=== PATIENT | female | born 1990 | race Two or more races ===

== ENCOUNTER 2020-12-22 07:57 | Outpatient (REF) | payer OTHER, SELFPAY ==
[2020-12-22 10:28] LABS: Hematocrit 40.5 % (37-47); Hemoglobin 12.6 g/dl (12.0-16.0); Mean Corpuscular HGB Conc 31.1 g/dl (31.0-35.0); Mean Corpuscular Volume 80.2 fL (80-98); Platelet Count 443 X10*3/uL (160-400); Red Blood Count 5.05 X10*6/uL (4.20-5.50); Red Cell Distribution Width 15.2 % (11.0-16.0); White Blood Count 10.5 X10*3/uL (4.8-10.8)
[2020-12-22 10:51] LABS: Alanine Aminotransferase 35 U/L (0-31); Albumin Level 4.3 g/dL (3.5-5.0); Alkaline Phosphatase 88 U/L (39-117); Amylase 49 U/L (28-100); Anion Gap 13 (12-20); Aspartate Amino Transferase 21 U/L (5-31); Bilirubin Total 0.6 mg/dL (0.0-1.0); Blood Urea Nitrogen 15 mg/dL (9-16); Calcium 9.2 mg/dL (8.4-10.2); Carbon Dioxide 26 mmol/L (22-29); Chloride 102 mmol/L (96-108); Estimated Glomerular Filt Rate > 60; Glucose Random 93 mg/dL (60-115); Lipase 27 U/L (8-78); Potassium 3.9 mmol/L (3.3-5.1); Sodium 137 mmol/L (135-145); Total Protein 7.6 g/dL (6.5-8.0)
[2020-12-22 11:14] LABS: Thyroid Stimulating Hormone 3.07 uIU/mL (0.32-4.0)
[2020-12-23 02:39] LABS: CT PCR NOT DETECTED (Not Detect.); NG PCR NOT DETECTED (Not Detect.)
[2020-12-23 10:03] LABS: DHEA Sulfate 239 mcg/dL (18-391)
[2020-12-23 11:51] LABS: Prolactin 6.3 ng/mL
[2020-12-23 13:03] LABS: BV Int Neg Control Negative (Negative); BV Int Pos Control Positive (Positive)
[2020-12-28 15:42] LABS: Testosterone, Free 9.2 pg/mL (0.1-6.4); Testosterone, Total 45 ng/dL (2-45)
== END 2020-12-22 07:58 | disposition home or self-care (01) ==
LOC: HO.LAB 07:57
PROVIDERS: Nurse Practitioner Family; PCP Nurse Practitioner Family; Visit Provider Advanced Practice Midwife
DX: Z11.3 Encounter for screening for infections with a predominantly sexual mode of transmission (principal); R10.13 Epigastric pain; N93.9 Abnormal uterine and vaginal bleeding, unspecified; N92.6 Irregular menstruation, unspecified; L68.0 Hirsutism; E66.01 Morbid (severe) obesity due to excess calories; Z68.43 Body mass index [BMI] 50.0-59.9, adult
CPT/HCPCS: 36415; 80053; 81025; 82150; 82627; 83498; 83690; 84146; 84402; 84403; 84443; 85027; 87480; 87491; 87510; 87591; 87660; 99212

== ENCOUNTER 2021-01-07 15:26 | Outpatient (REF) | payer OTHER, SELFPAY ==
--- NOTE | ~2021-01-07 | US_ITS ---
EXAMINATION: US PELVIS AND TRANSVAGINAL CLINICAL INFORMATION: Abnormal uterine bleeding. COMPARISON: 04/22/2019 TECHNIQUE: Transcutaneous and transvaginal pelvic ultrasound. Transvaginal scanning was performed after voiding to better evaluate the endometrium and adnexa. FINDINGS: The uterus measures 6.9 x 4.2 x 5.1 cm. The uterus is retroverted and retroflexed oblique to the left.No suspicious abnormalities region of the cervix. The uterine contour is smooth. There is an arcuate appearance to the uterus. The endometrium measures 1.5 cm. The endometrium is somewhat heterogeneous which may be related to the secretory phase. No focal polyp identified. No focal abnormalities within the myometrium. The right ovary measures approximately 3.6 x 1.9 x 2.7 cm. The calculated right ovarian volume is approximately 9.7 mL. No abnormal right adnexal findings identified. The left ovary measures 3.1 x 1.7 x 1.9 cm. The calculated left ovarian volume is approximately 5.2 mL. No left adnexal abnormalities appreciated. No significant free pelvic fluid. US/US pelvic and transvaginal IMPRESSION: Arcuate uterus. Thickened and somewhat heterogeneous endometrium measuring 1.5 cm in diameter. This may be seen in the secretory phase. Hyperplasia can also have this appearance as well as endometritis. Endometrial carcinoma would seem much less likely at this age.
== END 2021-01-07 15:27 | disposition home or self-care (01) ==
LOC: HO.US 15:26
PROVIDERS: PCP Nurse Practitioner Family; Visit Provider Advanced Practice Midwife
DX: N93.9 Abnormal uterine and vaginal bleeding, unspecified (principal); N92.6 Irregular menstruation, unspecified; L68.0 Hirsutism
CPT/HCPCS: 76830; 76856

== ENCOUNTER 2021-01-21 09:26 | Outpatient (REF) | payer OTHER, SELFPAY | END 2021-01-21 09:27 | disposition home or self-care (01) | LOC: HO.LAB 09:26 | PROVIDERS: PCP Nurse Practitioner Family; Visit Provider Advanced Practice Midwife | DX: E28.2 Polycystic ovarian syndrome (principal); N93.9 Abnormal uterine and vaginal bleeding, unspecified | CPT/HCPCS: 58100; 81025; 88142; 88305 ==

== ENCOUNTER → 2021-02-04 09:33 | Outpatient (BNVA) | payer OTHER, SELFPAY | PROVIDERS: PCP Nurse Practitioner Family; Visit Provider Advanced Practice Midwife ==

== ENCOUNTER 2021-03-08 14:59 | Outpatient (REF) | payer OTHER, SELFPAY ==
[2021-03-08 17:28] LABS: Influenza A PCR NEGATIVE (Negative); Influenza B PCR NEGATIVE (Negative); Resp Syncy Virus RNA Qual PCR NEGATIVE (Negative); SARS COV2 PCR INHOUSE NEGATIVE (Negative)
== END 2021-03-08 15:00 | disposition home or self-care (01) ==
LOC: HO.LAB 14:59
PROVIDERS: Visit Provider Internal Medicine
DX: R43.9 Unspecified disturbances of smell and taste (principal); Z20.822 Contact with and (suspected) exposure to COVID-19
CPT/HCPCS: 0241U; 36415

== ENCOUNTER → 2021-04-04 12:47 | Outpatient (BNVA) | payer OTHER, SELFPAY | PROVIDERS: PCP Nurse Practitioner Family; Visit Provider Advanced Practice Midwife | DX: Z30.430 Encounter for insertion of intrauterine contraceptive device (principal) | CPT/HCPCS: 58300; 81025 ==

== ENCOUNTER 2021-05-09 14:04 | Outpatient (REF) | payer OTHER, SELFPAY ==
[2021-05-10 10:21] LABS: BV Int Neg Control Negative (Negative); BV Int Pos Control Positive (Positive)
== END 2021-05-09 14:05 | disposition home or self-care (01) ==
LOC: HO.LAB 14:04
PROVIDERS: PCP Nurse Practitioner Family; Visit Provider Advanced Practice Midwife
DX: N92.4 Excessive bleeding in the premenopausal period (principal); R10.2 Pelvic and perineal pain; N92.6 Irregular menstruation, unspecified; Z30.431 Encounter for routine checking of intrauterine contraceptive device
CPT/HCPCS: 87480; 87510; 87660; 99212

== ENCOUNTER 2021-06-24 15:35 | Outpatient (REF) | payer OTHER, SELFPAY ==
--- NOTE | ~2021-06-24 | US_ITS ---
EXAMINATION: US PELVIC AND TRANSVAGINAL CLINICAL INFORMATION: Excessive and frequent menstruation. COMPARISON: Previous pelvic ultrasound most recent 01/07/2021. TECHNIQUE: Ultrasound of the pelvis is performed using both transabdominal and transvaginal transducers along with Doppler. Transvaginal imaging is performed due to inadequate visualization transabdominally. FINDINGS: The uterus is retroverted and measures 6.5 x 3.6 x 4.1 cm in dimension. There is an IUD in the uterus in satisfactory position. Endometrial thickness is normal measuring 8 mm. No focal uterine lesion is seen. There are nabothian cysts in the cervix. The right ovary measures 3.4 x 2 x 2.5 cm. The left ovary measures 3.3 x 1.7 x 1.8 cm. There are multiple small peripheral cysts or follicles seen in both ovaries. There is question of a 1.5 x 1.2 x 1.2 cm left adnexal cyst. This is seen on transabdominal imaging only. There is no fluid in the pelvis. US/US pelvic and transvaginal IMPRESSION: New IUD in the uterus in satisfactory position.
== END 2021-06-24 15:36 | disposition home or self-care (01) ==
LOC: HO.US 15:35
PROVIDERS: Visit Provider Advanced Practice Midwife
DX: Z30.431 Encounter for routine checking of intrauterine contraceptive device (principal); N92.0 Excessive and frequent menstruation with regular cycle
CPT/HCPCS: 76830; 76856

== ENCOUNTER → 2021-07-04 15:21 | Outpatient (BNVA) | payer OTHER, SELFPAY | PROVIDERS: PCP Nurse Practitioner Family; Visit Provider Advanced Practice Midwife ==

== ENCOUNTER 2022-02-24 09:57 | Outpatient (REF) | payer OTHER, SELFPAY ==
[2022-02-24 15:32] LABS: CT PCR NOT DETECTED (Not Detect.); NG PCR NOT DETECTED (Not Detect.)
[2022-03-02 22:41] LABS: HPV mRNA E6/E7 rflx Not Detected (Not Detected)
== END 2022-02-24 09:58 | disposition home or self-care (01) ==
LOC: HO.LNP 09:57
PROVIDERS: Visit Provider Advanced Practice Midwife
DX: Z01.419 Encounter for gynecological examination (general) (routine) without abnormal findings (principal); Z11.51 Encounter for screening for human papillomavirus (HPV)
CPT/HCPCS: 87491; 87591; 87624; 88142

== ENCOUNTER 2022-06-15 06:54 | Outpatient (REF) | payer OTHER, SELFPAY ==
[2022-06-15 11:12] LABS: MANUAL DIFF FLAG NO
[2022-06-15 11:18] LABS: Basophils Absolute Auto 0.1 X10*3/uL (0.0-0.2); Basophils Percent Auto 0.6 % (0-2); Eosinophils Absolute Auto 0.3 X10*3/uL (0.0-0.4); Eosinophils Percent Auto 3.1 % (0-4); Hematocrit 44.3 % (37.0-47.0); Hemoglobin 13.8 g/dl (12.0-16.0); Imm Gran Abs Auto 0.07 X10*3/uL (0.00-0.03); Imm Gran Pct Auto 0.6 % (0.0-0.4); Lymphocytes Absolute Auto 3.2 X10*3/uL (1.2-4.9); Lymphocytes Percent Auto 29.1 % (20-40); Mean Corpuscular HGB Conc 31.2 g/dl (31.0-35.0); Mean Corpuscular Hemoglobin 25.8 pg (27.0-33.0); Mean Platelet Volume 9.5 fL (9.4-12.3); Monocytes Absolute Auto 0.8 X10*3/uL (0.1-1.2); Monocytes Percent Auto 7.6 % (2-11); Neutrophils Absolute Auto 6.4 x10*3/uL (2.0-8.3); Platelet Count 388 X10*3/uL (160-400); Red Blood Count 5.34 X10*6/uL (4.20-5.50); White Blood Count 10.8 X10*3/uL (4.8-10.8)
[2022-06-15 11:41] LABS: Appearance Urine Clear; Color Urine Yellow; Glucose Urine UA Negative (Negative); Leukocyte Esterase Urine Small (1+) (Negative); Nitrite Urine Negative (Negative); Specific Gravity - Urine 1.015 (1.005-1.025); UMIC TRIGGER UACC YES; Urine Blood Negative (Negative); Urine Ketones Negative (Negative); Urine Protein Negative (Neg-Trace)
[2022-06-15 12:00] LABS: Bacteria Urine None Seen (None Seen); Hyaline Casts Urine 0-2 /LPF (0-2); RBC Urine 0-2 /HPF (0-2); UACC Culture Trigger YES; WBC Urine 0-5 /HPF (0-5)
[2022-06-15 13:13] LABS: Alanine Aminotransferase 47 U/L (0-31); Albumin Level 4.1 g/dL (3.5-5.0); Alkaline Phosphatase 99 U/L (39-117); Anion Gap 12 (12-20); Aspartate Amino Transferase 24 U/L (5-31); Bilirubin Total 0.6 mg/dL (0.0-1.0); Blood Urea Nitrogen 15 mg/dL (9-16); Calcium 8.9 mg/dL (8.4-10.2); Carbon Dioxide 29 mmol/L (22-29); Chloride 100 mmol/L (96-108); Cholesterol 127 mg/dL; Estimated Glomerular Filt Rate > 60; Glucose Fasting 103 mg/dL (60-99); HDL Cholesterol 41 mg/dL; LDL Cholesterol Calculated 73 mg/dl; Potassium 3.9 mmol/L (3.3-5.1); Sodium 137 mmol/L (135-145); Total Protein 7.1 g/dL (6.5-8.0); Triglycerides 68 mg/dL
[2022-06-15 13:34] LABS: TSH reflex Free T4 2.76 uIU/mL (0.32-4.0)
== END 2022-06-15 06:55 | disposition home or self-care (01) ==
LOC: HO.HMGCLDS 06:54
PROVIDERS: PCP Nurse Practitioner Family; Visit Provider Nurse Practitioner Family
DX: Z00.00 Encounter for general adult medical examination without abnormal findings (principal)
CPT/HCPCS: 36415; 80053; 80061; 81001; 84443; 85025; 87086; 87147

== ENCOUNTER 2022-06-20 07:19 | Outpatient (REF) | payer OTHER, SELFPAY ==
[2022-06-20 11:37] LABS: Appearance Urine Clear; Color Urine Yellow; Glucose Urine UA Negative (Negative); Leukocyte Esterase Urine Negative (Negative); Nitrite Urine Negative (Negative); Urine Blood Negative (Negative); Urine Ketones Negative (Negative); Urine Protein Negative (Neg-Trace)
[2022-06-21 04:58] LABS: HBS Num1 389.73 mIU/mL (0-7.99); HBc Num1 0.14 S/CO (0.00-0.79); HBsAGNum1 0.27 S/CO (0.00-0.99); Hepatitis A Antibody IgM 0.18 Index (0-0.79); Hepatitis B Core Antibody Nonreactive (Nonreactive); Hepatitis B Surface Antigen Negative (Negative); ~Hepatitis A Antibody IgM Nonreactive (Nonreactive); ~Hepatitis B Surface Antibody REACTIVE (Nonreactive); ~Hepatitis C Antibody Nonreactive (Nonreactive)
== END 2022-06-20 07:20 | disposition home or self-care (01) ==
LOC: HO.HMGCLDS 07:19
PROVIDERS: PCP Nurse Practitioner Family; Visit Provider Nurse Practitioner Family
DX: Z00.00 Encounter for general adult medical examination without abnormal findings (principal); R74.8 Abnormal levels of other serum enzymes
CPT/HCPCS: 36415; 81003; 86704; 86706; 86709; 86803; 87340

== ENCOUNTER 2022-06-26 08:48 | Outpatient (REF) | payer OTHER, SELFPAY ==
--- NOTE | ~2022-06-26 | US_ITS ---
EXAMINATION: US ABDOMEN COMPLETE CLINICAL INFORMATION: Abnormal levels of other serum enzymes. COMPARISON: Ultrasound abdomen complete 10/08/2018. TECHNIQUE: Real-time imaging of the abdominal viscera. FINDINGS: PANCREAS: Normal. ABDOMINAL AORTA: The proximal, mid, and distal segments are normal in caliber. INFERIOR VENA CAVA: Visualized portions are normal. LIVER: The liver is normal in size. The liver contour is normal. There is diffuse increased liver parenchymal echogenicity, consistent with infiltrative hepatocellular disease. No definite focal lesion is seen, but evaluation is limited due to poor sound beam penetration through the coarse echogenic liver parenchyma. There is no intrahepatic biliary duct dilatation seen. GALLBLADDER: Surgically absent. COMMON BILE DUCT: Normal in caliber measuring 0.4 cm in diameter. RIGHT KIDNEY: Normal. No hydronephrosis. No renal calculi or focal parenchymal lesions. The kidney measures 11.0 cm in maximum dimension. LEFT KIDNEY: Normal. No hydronephrosis. No renal calculi or focal parenchymal lesions. The kidney measures 10.5 cm in maximum dimension. SPLEEN: Normal. The spleen measures 9.5 cm in maximum dimension. FREE FLUID: None. US/US abdomen complete IMPRESSION: Increased hepatic echogenicity which can be seen in the setting of hepatic steatosis or underlying liver disease.
== END 2022-06-26 08:49 | disposition home or self-care (01) ==
LOC: HO.HMGCX 08:48
PROVIDERS: PCP Nurse Practitioner Family; Visit Provider Nurse Practitioner Family
DX: R74.8 Abnormal levels of other serum enzymes (principal)
CPT/HCPCS: 76700

== ENCOUNTER → 2022-08-31 07:34 | Outpatient (BNVA) | payer OTHER, SELFPAY | PROVIDERS: PCP Nurse Practitioner Family; Referring Provider Nurse Practitioner Family; Visit Provider Nurse Practitioner Family | DX: R10.13 Epigastric pain (principal); R74.8 Abnormal levels of other serum enzymes; K21.9 Gastro-esophageal reflux disease without esophagitis; K58.2 Mixed irritable bowel syndrome; E55.9 Vitamin D deficiency, unspecified | CPT/HCPCS: 99202 ==

== ENCOUNTER 2022-09-05 06:29 | Outpatient (REF) | payer OTHER, SELFPAY ==
[2022-09-05 12:16] LABS: Estimated Average Glucose 117 mg/dL; Hemoglobin A1c % 5.7 %
[2022-09-05 12:30] LABS: Alanine Aminotransferase 34 U/L (0-31); Albumin Level 4.2 g/dL (3.5-5.0); Alkaline Phosphatase 109 U/L (39-117); Aspartate Amino Transferase 17 U/L (5-31); Bilirubin Direct 0.2 mg/dL (0.0-0.5); Bilirubin Total 0.6 mg/dL (0.0-1.0); Lipase 36 U/L (8-78); Total Protein 7.2 g/dL (6.5-8.0)
[2022-09-05 12:45] LABS: Vitamin B12 301 pg/mL (200-900)
[2022-09-08 19:24] LABS: Vitamin D 25-OH, D2 <4 ng/mL; Vitamin D 25-OH, D3 11 ng/mL; Vitamin D 25-OH, Total 11 ng/mL (30-100)
[2022-09-11 08:28] LABS: Transglutaminase Ab IgG <1.0 U/mL; Transglutaminase IgA <1.0 U/mL
== END 2022-09-05 06:30 | disposition home or self-care (01) ==
LOC: HO.HMGCLDS 06:29
PROVIDERS: PCP Nurse Practitioner Family; Visit Provider Nurse Practitioner Family
DX: R10.9 Unspecified abdominal pain (principal); R10.13 Epigastric pain; E55.9 Vitamin D deficiency, unspecified; R19.7 Diarrhea, unspecified
CPT/HCPCS: 36415; 80076; 82306; 82607; 82746; 83036; 83690; 86364

== ENCOUNTER 2022-09-07 08:12 | Outpatient (REF) | payer OTHER, SELFPAY ==
[2022-09-09 11:06] LABS: H Pylori Breath Test Negative (Negative)
== END 2022-09-07 08:13 | disposition home or self-care (01) ==
LOC: HO.LNP 08:12
PROVIDERS: Visit Provider Nurse Practitioner Family
DX: Z11.2 Encounter for screening for other bacterial diseases (principal)
CPT/HCPCS: 83013; 99211

== ENCOUNTER → 2022-10-05 08:00 | Outpatient (BNVA) | payer OTHER, SELFPAY | PROVIDERS: PCP Nurse Practitioner Family; Referring Provider Nurse Practitioner Family; Visit Provider Nurse Practitioner Family | DX: K21.9 Gastro-esophageal reflux disease without esophagitis (principal); R10.13 Epigastric pain; K59.04 Chronic idiopathic constipation; Z79.899 Other long term (current) drug therapy | CPT/HCPCS: 99212 ==

== ENCOUNTER 2023-03-13 08:06 | Outpatient (AMB) | payer OTHER, SELFPAY ==
[2023-03-13 08:31] VITALS: BP 132/80; PULSE 72; TEMP 36.4; O2SAT 98; BMI 55.8
--- NOTE | 2023-03-13 08:31 | MHC.OFFWIV ---
Intake Vital Signs 03/13/23 08:31 Height 5 ft Weight 286 lb BMI 55.8 BP 132/80 Blood Pressure Location Rt brachial Position Sitting Pulse 72 Pulse Source Pulse Oximeter Temp 97.6 F Temp Source Temporal Artery Scan Pulse Oximetry (%) 98 Intake Visit Reasons: EP Diff breathing due to cough -1 week Intake Note: pt is here for c/o difficult breathing due to cough 1x week Patient Tobacco Use Status: Never used Tobacco Allergies No Known Allergies [No Known Allergies*] Allergy (Verified 03/13/23 09:05) Medication List - Last Reconciled 03/13/23 by Guero Puente MD calcium carbonate (Tums) 300 mg PO BID cholecalciferol (vitamin D3) 50 mcg PO DAILY docusate sodium 100 mg PO BEDTIME famotidine (Pepcid) 20 mg PO BEDTIME levonorgestrel (Kyleena) intrauterine methylcellulose (laxative) (Citrucel) 500 mg PO DAILY sennosides (Natural Senna Laxative) 17.2 mg (2 x 8.6 mg) PO BEDTIME Do you need a note to return to daycare/school/sports/work: Yes HPI EP Diff breathing due to cough -1 week HPI Details Patient presents for a sick visit. Reporting symptoms of sinus congestion, sore throat and difficulty swallowing. Low-grade fever. No family member is sick. No recent travel. Patient reports symptoms of malaise and fatigue. [facility] Medical History Arcuate uterus Fatty liver GERD (gastroesophageal reflux disease) Hirsutism History of pancreatitis Iron deficiency anemia due to chronic blood loss Menorrhagia with irregular cycle Morbid obesity with BMI of 50.0-59.9, adult PCOS (polycystic ovarian syndrome) Surgical History History of tonsillectomy S/P cholecystectomy Family History Father Diabetes Hypertension Mother Diabetes Hypertension Thyroid cancer Maternal Grandmother Breast cancer Social History Household Members: Spouse and Children Housing: House Alcohol intake: current Alcohol intake frequency: holidays/special occasions only Alcohol type: beer and hard liquor Patient Tobacco Use Status: Never used Tobacco e-Cigarette/Vaping Use: Never Used Second Hand Smoke Exposure: Yes service: No Current occupational status: employed Current occupation: [email or web address] Current occupational exposures/hazards: No Cognitive needs: No Hearing needs: No Vision needs: No Female Reproductive History Menstrual Age of Menarche: 11 Physical Exam Vital Signs: Last Vital Signs Temp 97.6 F 03/13/23 08:31 Pulse 72 03/13/23 08:31 BP 132/80 03/13/23 08:31 Pulse Ox 98 03/13/23 08:31 BMI result Body Mass Index 55.8 Const General: cooperative and healthy appearing Nutritional Appearance: well nourished Orientation/consciousness: patient oriented x3 Limitations: no limitations HEENT Head: Yes normal to inspection Eyes General: appearance normal, both eyes and all related structures Neck Neck: Yes normal visual inspection Chest Chest palpation & inspection: normal palpation of entire chest wall Resp Effort & Inspection: normal respiratory effort Neuro General: patient oriented x3 Assessment & Plan Assessment & Plan (1) Upper respiratory tract infection: Code(s): J06.9 - Acute upper respiratory infection, unspecified Plan: Antibiotics ordered. Increase fluid intake. Tylenol for aches and pains. If symptoms worsen, follow-up here for a recheck. Coding Level of Care Code Est Pt Level 3 (63621) Diagnoses Upper respiratory tract infection J06.9
== END 2023-03-13 09:21 | disposition home or self-care (01) ==
PROVIDERS: PCP Nurse Practitioner Family; Visit Provider Internal Medicine
DX: J06.9 Acute upper respiratory infection, unspecified (principal)
CPT/HCPCS: 99213

== ENCOUNTER 2023-07-18 14:00 | Outpatient (AMB) | payer OTHER, SELFPAY ==
--- NOTE | 2023-07-18 14:02 | A.OFFVIS_ITS ---
Intake Vital Signs 07/18/23 14:03 Height 5 ft Weight 282 lb BMI 55.1 BP 108/66 Intake Visit Reasons: Annual Electronic Publications Specialist: Electronic Publications Specialist Present (Frances) Allergies No Known Allergies [No Known Allergies*] Allergy (Verified 07/18/23 14:03) HPI HPI Comments History of Present Illness Details She is a premenopausal woman presenting for annual examination. Doing well with no concerns. She tries to eat healthy and tries to exercise. Regular monthly menses. Currently is sexually active. She denies vaginal itching and irritation. STI screening offered; she declines. Denies family history of ovarian or colon cancer. Family history of breast cancer Last pap smear 2021, negative. [facility] Medical History Fatty liver GERD (gastroesophageal reflux disease) Arcuate uterus PCOS (polycystic ovarian syndrome) Morbid obesity with BMI of 50.0-59.9, adult History of pancreatitis Iron deficiency anemia due to chronic blood loss Hirsutism Menorrhagia with irregular cycle Surgical History S/P cholecystectomy History of tonsillectomy Family History Father Diabetes Hypertension Mother Diabetes Hypertension Thyroid cancer Maternal Grandmother Breast cancer Social History Household Members: Spouse and Children Housing: House Alcohol intake: current Alcohol intake frequency: holidays/special occasions only Alcohol type: beer and hard liquor Patient Tobacco Use Status: Never used Tobacco e-Cigarette/Vaping Use: Never Used Second Hand Smoke Exposure: Yes service: No Current occupational status: employed Current occupation: [employer] Current occupational exposures/hazards: No Cognitive needs: No Hearing needs: No Vision needs: No Female Reproductive History Menstrual Age of Menarche: 11 control method: progestin IUCD (Kyleena 04/24) Total pregnancies: 0 Date of last pap smear: 02/24/22 (neg pap and hpv) Review of Systems Const All systems reviewed & are unremarkable except as noted in HPI and below Reports as per HPI Eyes Reports no additional complaints ENT Reports no additional complaints Card Reports no additional complaints Resp Reports no additional complaints GI Reports as per HPI and Reports no additional complaints Reports as per HPI Musc Reports no additional complaints Skin/Breast Reports as per HPI Neuro Reports no additional complaints Psych Reports no additional complaints Endo Reports no additional complaints Zay/Lymph Reports no additional complaints Aller/Immun Reports no additional complaints Physical Exam Vital Signs: Last Vital Signs BP 108/66 07/18/23 14:03 BMI result Body Mass Index 55.1 Const General: cooperative, healthy appearing, no acute distress, well developed and alert Orientation/consciousness: patient oriented x3 HEENT Head: Yes normal to inspection Eyes General: appearance normal, both eyes and all related structures Neck Neck: Yes normal visual inspection Thyroid: Thyroid normal Chest Chest palpation & inspection: normal inspection of the chest and other (no puckering, dimpling, peau de orange, retraction, discharge, masses) Breast/axilla inspection: normal inspection of the breasts Breast/axilla palpation: normal palpation of the breasts Resp Effort & Inspection: normal respiratory effort GI Inspection: Yes normal to inspection and Yes obesity Palpation (GI): Soft to palpation Rectal Exam - Female: deferred General: Yes bladder normal to palpation External Female Exam: normal external appearance and normal appearance of the urethra Speculum Exam - Vagina: normal appearance of the vagina, normal palpation and normal vaginal discharge Speculum Exam - Cervix: normal appearance of the cervix, normal palpation and Other cervical findings present (IUD strings present) Bimanual exam- vagina & uterus: normal bimanual exam, normal palpation, uterine size normal, bladder normal to palpation, normal palpation and non-tender Bimanual Exam- Adnexa, other: no masses Skin General skin exam: no rashes or lesions noted Rashes: no rashes Neuro General: patient oriented x3 Cognition (Neuro): normal cognition Extrem General: Yes normal to inspection Psych Attitude: cooperative Thought process: Normal thought process present Assessment & Plan Assessment & Plan (1) Encounter for well woman exam with routine gynecological exam: Code(s): Z01.419 - Encounter for gynecological examination (general) (routine) without abnormal findings Plan Discussed: Current recommendations for pap smears per ASCCP guidelines. Breast awareness and periodic breast exams. Maintain a healthy lifestyle including a well balanced diet and routine exercise. Patient verbalizes understanding and agrees to the plan of care. She was given opportunity to ask questions and all questions were answered to the best of my ability. RTO in one year for annual nurse obgyn examination. This note is constructed using voice recognition software. While every effort has been made to ensure accuracy, counter sales person errors may have been included. Coding Level of Care Code Est Pt Prev Care 18-39y(48539) Diagnoses Encounter for well woman exam with routine gynecological exam Z01.419
[2023-07-18 14:03] VITALS: BP 108/66; BMI 55.1
== END 2023-07-18 14:34 | disposition home or self-care (01) ==
PROVIDERS: PCP Nurse Practitioner Family; Visit Provider Advanced Practice Midwife
DX: Z01.419 Encounter for gynecological examination (general) (routine) without abnormal findings (principal)
CPT/HCPCS: 99395

== ENCOUNTER → 2023-07-18 14:00 | Outpatient (BNVA) | payer OTHER, SELFPAY | PROVIDERS: PCP Nurse Practitioner Family; Visit Provider Advanced Practice Midwife | DX: Z01.419 Encounter for gynecological examination (general) (routine) without abnormal findings (principal) | CPT/HCPCS: 99395 ==

== ENCOUNTER 2024-01-21 08:04 | Outpatient (AMB) | payer OTHER, SELFPAY ==
[2024-01-21 08:08] VITALS: BMI 55.5
--- NOTE | 2024-01-21 08:08 | AM.OFFWIN_ITS ---
Intake Vital Signs 01/21/24 08:08 01/21/24 08:20 Height 5 ft 5 ft Weight 284 lb 284 lb BMI 55.5 55.5 BP 110/82 Blood Pressure Location Lt radial Position Sitting Pulse 97 Pulse Source Pulse Oximeter Temp 98.4 F Temp Source Oral Pulse Oximetry (%) 98 Oxygen Delivery Method Room Air Intake Visit Reasons: EP Sore Throat, ear pain, cough, fever, red eyes Intake Note: PT C/O sore throat, ear pain, cough, fever, red eyes. Started 1 week ago Patient Tobacco Use Status: Never used Tobacco Allergies No Known Allergies [No Known Allergies*] Allergy (Verified 01/21/24 08:22) Do you need a note to return to daycare/school/sports/work: No HPI HPI Comments History of Present Illness Details Patient is a 33-year-old female complaining of 1 week of sore throat, head congestion, cough, fever with a T-max of 102 degrees that came down with Tylenol, and ear pain. She states he travel to [place] a week ago and she got sick while she was there. She states no one else at home is sick. She denies any nausea vomiting diarrhea or sinus pain. She did not test for COVID at home. She has been using Mucinex and has gone through 2 bottles already but it does not seem to be helping. [facility] Medical History Fatty liver GERD (gastroesophageal reflux disease) Arcuate uterus PCOS (polycystic ovarian syndrome) Morbid obesity with BMI of 50.0-59.9, adult History of pancreatitis Iron deficiency anemia due to chronic blood loss Hirsutism Menorrhagia with irregular cycle Surgical History S/P cholecystectomy History of tonsillectomy Family History Father Diabetes Hypertension Mother Diabetes Hypertension Thyroid cancer Maternal Grandmother Breast cancer Social History Household Members: Spouse and Children Housing: House Alcohol intake: current Alcohol intake frequency: holidays/special occasions only Alcohol type: beer and hard liquor Patient Tobacco Use Status: Never used Tobacco e-Cigarette/Vaping Use: Never Used Second Hand Smoke Exposure: Yes service: No Current occupational status: employed Current occupation: [employer] Current occupational exposures/hazards: No Cognitive needs: No Hearing needs: No Vision needs: No Female Reproductive History Menstrual Age of Menarche: 11 Review of Systems Const All systems reviewed & are unremarkable except as noted in HPI and below Physical Exam Vital Signs: Last Vital Signs Temp 98.4 F 01/21/24 08:20 Pulse 97 01/21/24 08:20 BP 110/82 01/21/24 08:20 Pulse Ox 98 01/21/24 08:20 Oxygen Delivery Method Room Air 01/21/24 08:20 BMI result Body Mass Index 55.5 Const General: cooperative, healthy appearing, comfortable and no acute distress Orientation/consciousness: patient oriented x3 Limitations: no limitations HEENT Head: Yes normal to inspection Ears: hearing grossly normal bilaterally, external ears normal and TM's normal bilaterally General nose exam: Normal external nose present, Normal nares present and No nasal discharge present Face and sinus: Yes normal facial exam and Yes sinuses nontender Mouth: Normal oral and palatal mucosa present and moist mucous membranes Throat: Yes tonsils normal, Yes uvula midline and Yes posterior oropharynx abnormal (Erythema) Eyes General: appearance normal, both eyes and all related structures Neck Neck: Yes normal visual inspection Resp Effort & Inspection: normal respiratory effort, able to speak in complete sentences, Actively coughing, no respiratory distress, not tachypneic, no tripod positioning and no use of accessory muscles Auscultation: clear to auscultation bilaterally Cardio Rate: regular rate Rhythm: regular rhythm Heart sounds: normal S1 and S2 Skin General skin exam: no rashes or lesions noted Neuro General: patient oriented x3 Extrem General: Yes normal to inspection and Yes no clubbing, cyanosis or edema Results AMB Rapid Strep AMB Rapid Strep Negative Last Edit by Maryan Carnes CMA on 01/21/24 08:31 Results Reviewed Results Reviewed: Laboratory Last Values Strep Scn Rapid Clinic Negative 01/21/24 08:25 Assessment & Plan Assessment & Plan (1) Upper respiratory tract infection: Code(s): J06.9 - Acute upper respiratory infection, unspecified Qualifiers: URI type: unspecified URI Qualified Code(s): J06.9 - Acute upper respiratory infection, unspecified Plan: Will likely prescribe azithromycin plus or minus Augmentin depending on what chest x-ray says. Sent flu COVID and RSV, rapid strep was negative in office Plan see above Orders: Orders AMB Rapid Strep Screen Today Z13.9 - Encounter for screening, unspecified SARS-CoV2/FLU/RSV Today J06.9 - Acute upper respiratory infection, unspecified XR chest 2V Today R05.9 - Cough, unspecified Coding Level of Care Code Est Pt Level 3 (90760) Diagnoses Upper respiratory tract infection, unspecified type J06.9 URI type: unspecified URI
[2024-01-21 08:20] VITALS: BP 110/82; PULSE 97; TEMP 36.9; O2SAT 98; BMI 55.5
== END 2024-01-21 08:47 | disposition home or self-care (01) ==
PROVIDERS: PCP Nurse Practitioner Family; Visit Provider Physician Assistant
DX: J06.9 Acute upper respiratory infection, unspecified (principal); Z13.9 Encounter for screening, unspecified
CPT/HCPCS: 87880; 99213

== ENCOUNTER 2024-01-21 08:46 | Outpatient (REF) | payer OTHER, SELFPAY ==
--- NOTE | ~2024-01-21 | XR_ITS ---
EXAMINATION: XR CHEST CLINICAL INFORMATION: Cough COMPARISON: 07/22/2019 TECHNIQUE: 2 views of the chest were obtained. FINDINGS: No significant abnormality is noted involving the heart, lungs, mediastinum, bony thorax or soft tissues. XR/XR chest 2V IMPRESSION: Unremarkable examination.
== END 2024-01-21 08:47 | disposition home or self-care (01) ==
LOC: HO.HMGCX 08:46
PROVIDERS: PCP Nurse Practitioner Family; Visit Provider Physician Assistant
DX: R05.9 Cough, unspecified (principal)
CPT/HCPCS: 71046

== ENCOUNTER 2024-01-21 08:46 | Outpatient (REF) | payer OTHER, SELFPAY ==
[2024-01-21 11:39] LABS: Influenza A PCR NEGATIVE (Negative); Influenza B PCR NEGATIVE (Negative); Resp Syncy Virus RNA Qual PCR NEGATIVE (Negative); SARS COV2 PCR INHOUSE NEGATIVE (Negative)
== END 2024-01-21 08:47 | disposition home or self-care (01) ==
LOC: HO.LAB 08:46
PROVIDERS: Visit Provider Physician Assistant
DX: J06.9 Acute upper respiratory infection, unspecified (principal)
CPT/HCPCS: 0241U

== ENCOUNTER 2024-02-01 08:02 | Outpatient (AMB) | payer OTHER, SELFPAY ==
[2024-02-01 08:30] VITALS: BP 132/84; PULSE 91; TEMP 36.9; O2SAT 99; BMI 54.8
--- NOTE | 2024-02-01 08:30 | AM.OFFWIN_ITS ---
Intake Vital Signs 02/01/24 08:30 Height 5 ft Weight 280 lb 6 oz BMI 54.8 BP 132/84 Blood Pressure Location Lt brachial Position Sitting Pulse 91 Pulse Source Pulse Oximeter Temp 98.5 F Temp Source Oral Pulse Oximetry (%) 99 Oxygen Delivery Method Room Air Intake Visit Reasons: EP- sore throat, lost her voice Intake Note: Pt presents to the office today for c/o sore throat, congestion, and some sinus pressure that has been going on for about a month. Patient Tobacco Use Status: Never used Tobacco Allergies No Known Allergies [No Known Allergies*] Allergy (Verified 02/01/24 08:33) HPI HPI Comments History of Present Illness Details 33 y/o female patient who presents to [facility] for the c/o cough and chest tightness for at-least 1 month. Chest Xray done 01/17 negative for Infection. Recent COVID test negative. Denies fevers, chills, nausea or vomiting. [facility] Medical History Fatty liver GERD (gastroesophageal reflux disease) Arcuate uterus PCOS (polycystic ovarian syndrome) Morbid obesity with BMI of 50.0-59.9, adult History of pancreatitis Iron deficiency anemia due to chronic blood loss Hirsutism Menorrhagia with irregular cycle Surgical History S/P cholecystectomy History of tonsillectomy Family History Father Diabetes Hypertension Mother Diabetes Hypertension Thyroid cancer Maternal Grandmother Breast cancer Social History Household Members: Spouse and Children Housing: House Alcohol intake: current Alcohol intake frequency: holidays/special occasions only Alcohol type: beer and hard liquor Patient Tobacco Use Status: Never used Tobacco e-Cigarette/Vaping Use: Never Used Second Hand Smoke Exposure: Yes service: No Current occupational status: employed Current occupation: [employer] Current occupational exposures/hazards: No Cognitive needs: No Hearing needs: No Vision needs: No Female Reproductive History Menstrual Age of Menarche: 11 Review of Systems Const All systems reviewed & are unremarkable except as noted in HPI and below Physical Exam Vital Signs: Last Vital Signs Temp 98.5 F 08/30/24 08:30 Pulse 91 02/01/24 08:30 BP 132/84 02/01/24 08:30 Pulse Ox 99 02/01/24 08:30 Oxygen Delivery Method Room Air 02/01/24 08:30 BMI result Body Mass Index 54.8 Const General: cooperative and no acute distress Nutritional Appearance: obese Orientation/consciousness: patient oriented x3 HEENT Head: Yes normocephalic Ears: external ears normal and TM's normal bilaterally General nose exam: Abnormal mucous membranes and turbinates present boggy and erythematous Face and sinus: Yes sinuses nontender Mouth: moist mucous membranes Throat: Yes posterior oropharynx normal Resp Effort & Inspection: normal respiratory effort, able to speak in complete sentences and Actively coughing Auscultation: clear to auscultation bilaterally, no crackles, no rales, no rhonchi and no wheezes Cardio Heart sounds: S1 normal heart sound present and S2 normal heart sound present Neuro General: patient oriented x3, gait normal and moves all extremities Psych Speech and movement: Normal speech and movement present Results AMB Rapid Strep AMB Rapid Strep Negative Last Edit by Olivia Peñaloza CMA on 02/01/24 08:43 Results Reviewed Results Reviewed: Laboratory Last Values Strep Scn [facility] Clinic Negative 02/01/24 08:42 Assessment & Plan Assessment & Plan (1) Cough in adult: Code(s): R05.9 - Cough, unspecified Plan: Ordered Z-pack Added Cetirizine BID Rest Acetaminophen for pain relief. Plan Rapid Strep negative. Orders: Orders AMB Rapid Strep Screen Today Z13.9 - Encounter for screening, unspecified Medications: New azithromycin 500 mg PO DAILY 3 days 3 tabs 0RF J06.9 - Acute upper respiratory infection, unspecified, R05.9 - Cough, unspecified cetirizine (Zyrtec) 10 mg PO DAILY PRN 60 tabs 0RF allergy symptoms R05.9 - Cough, unspecified Coding Level of Care Code Est Pt Level 3 (64478) Diagnoses Cough in adult R05.9 Time Spent (min) 15
== END 2024-02-01 08:54 | disposition home or self-care (01) ==
PROVIDERS: PCP Nurse Practitioner Family; Visit Provider Nurse Practitioner Family
DX: R05.9 Cough, unspecified (principal); J02.9 Acute pharyngitis, unspecified
CPT/HCPCS: 87880; 99213

== ENCOUNTER 2024-02-01 08:42 | Outpatient (REF) | payer OTHER, SELFPAY ==
[2024-02-01 11:07] LABS: Influenza A PCR NEGATIVE (Negative); Influenza B PCR NEGATIVE (Negative); Resp Syncy Virus RNA Qual PCR NEGATIVE (Negative); SARS COV2 PCR INHOUSE NEGATIVE (Negative)
== END 2024-02-01 08:43 | disposition home or self-care (01) ==
LOC: HO.LAB 08:42
PROVIDERS: Visit Provider Nurse Practitioner Family
DX: R09.89 Other specified symptoms and signs involving the circulatory and respiratory systems (principal)
CPT/HCPCS: 0241U

== ENCOUNTER → 2024-02-12 10:08 | Outpatient (RCR) | payer OTHER, SELFPAY ==
[2021-01-10 10:55] VITALS: BP 122/70; PULSE 82; RESP 22; TEMP 37.2; O2SAT 98; BMI 54.6
--- NOTE | 2021-01-10 11:45 | PM.HEMONCPN ---
Medical Summary - Medical Summary Date of Service: 01/10/21 Chief complaint: Consult for: Thrombocytosis. Medical Summary: DIAGNOSIS: THROMBOCYTOSIS. Interval History Interval history: This is a pleasant 30-year-old lady who has been noted to have mild thrombocytosis. Review of her labs revealed the following platelet trend: 10/20: 419. 11/29/2018: 355. 04/22:483. CBC from 12/22: WBC 10.5, HGB 12.6, HCT 40.5, PLT 443. ROS: She tells me she is always tired, sometimes fatigued. She denies fever nor chills. Appetite is good. Her weight fluctuates. Sometimes she gained 5 lb and sometimes she loses it. She denies headaches. Sometimes he gets dizzy. If she is very active she sweats it increases her vaginal bleeding, she then feels rather dizzy. She denies chest pain. Sometimes he gets short of breath on exertion. No abdominal pain nausea vomiting heartburn indigestion. Bowels are working without any gross blood in it. She does have post cholecystectomy diarrhea at times. She denies dysuria or hematuria. Her periods are very heavy. Lately they have worsened. She has menometrorrhagia. They are continuous. She does not get a break. Sometimes only for a day or 2. She is scheduled for an endometrial biopsy on 01/21. She denies joint pain or muscle pain. Denies depression. She does have eczema. Family history: Her mom has thyroid problems. A niece has anemia. No other hem/onc problems. 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 She is . She has adopted children. She denies smoking. She drinks rarely only on holidays. Review of Systems - Constitutional Reports system reviewed and no additional complaints, except as documented, Reports lack of energy, Reports malaise, Reports weakness, Denies poor appetite, Denies weight loss - Eyes Reports system reviewed and no additional complaints, except as documented, Denies blurry vision - ENT Reports system reviewed and no additional complaints, except as documented - Cardiovascular Reports system reviewed and no additional complaints, except as documented, Reports shortness of breath with activity - Respiratory Reports no additional respiratory complaints, Denies change in phlegm color - Gastrointestinal Reports system reviewed and no additional complaints, except as documented, Reports diarrhea, Denies abdominal pain, Denies bloating - Genitourinary Reports no additional female genitourinary complaints, Reports abnormal periods, Reports abnormal vaginal bleeding, Reports bleeding between periods, Denies urinary urgency - Musculoskeletal Reports system reviewed and no additional complaints, except as documented - Integumentary/Breasts Skin/Breast: Reports no additional skin complaints Comments: Eczema - Neurologic Reports system reviewed and no additional complaints, except as documented, Reports dizziness - Psychiatric Reports system reviewed and no additional complaints, except as documented - Endocrine Reports no additional endocrine complaints - Hematologic/Lymphatic Reports system reviewed and no additional complaints, except as documented - Allergic/Immunologic Reports system reviewed and no additional complaints, except as documented [facility] Medical History: Medical History (Last Reviewed 01/10/21 @ 10:59 by Autumn Braun) Hirsutism History of pancreatitis Iron deficiency anemia due to chronic blood loss Menorrhagia with irregular cycle Morbid obesity with BMI of 50.0-59.9, adult Functional capacity: independent ambulation Patient : No Family History: Family History (Last Updated 01/10/21 @ 11:00 by Autumn Braun) Father Diabetes Hypertension Mother Diabetes Hypertension Thyroid cancer Other Cancer Surgical History: Surgical History (Last Reviewed 01/10/21 @ 10:59 by Autumn Braun) History of tonsillectomy S/P cholecystectomy Social History: Social History (Last Reviewed 01/10/21 @ 11:02 by Autumn Braun) Living Situation History: Household Members: Spouse Household Members: Children Housing: House Alcohol History: Alcohol intake: current Alcohol History Details: Alcohol intake frequency: holiday/special occasion Alcohol type: beer Alcohol type: hard liquor Tobacco History: Patient Tobacco Use Status: Never used Tobacco Nutrition Assessment: Patient : No Occupation Assessmet: service: No Current occupational status: employed Oncology Screenings - ECOG Performance Status ECOG Performance Status: 0 Home Medications and Allergies Allergies Allergy/AdvReac Type Severity Reaction Status Date / Time No Known Allergies Allergy Verified 12/23/20 07:55 [No Known Allergies*] Exam Vital signs: Vital Signs Temp 98.9 F 01/10/21 10:55 Pulse 82 01/10/21 10:55 Resp 22 H 01/10/21 10:55 BP 122/70 01/10/21 10:55 Pulse Ox 98 01/10/21 10:55 Intake & Output 01/09/21 01/10/21 01/10/21 18:59 06:59 18:59 Other: Weight 127 kg Nelson Weight in Grams [id number] Weight 127 kg Body Mass Index 54.6 - Constitutional Present: no acute distress - Routine HEENT Exam Head: Present: normal inspection Eye: Present: normal appearance ENT: Present: mucous membranes moist - Routine Neck Exam Present: full ROM - Routine Respiratory Exam Present: CTAB - Routine Cardiovascular Exam Cardiovascular: Present: RRR, S1, S2 - Routine Abdominal Exam Present: soft, nontender - Routine Rectal Exam Patient deferred: digital exam - Routine Extremities Exam Present: nontender - Routine Back/Spine/Pelvis Exam Back/Spine: Present: full ROM - Routine Skin Exam Present: intact - Routine Neurological Exam Present: alert, oriented X3 - Routine Psychiatric Exam Present: normal affect Data - Labs CBC & Chem 7: 01/10/21 11:47 01/10/21 11:47 Progress Note: A/P (1) Thrombocytosis Status: Acute Assessment and plan: This is a pleasant 30-year-old lady who has been noted to have mild thrombocytosis over the years. Platelet count from 04/22 was 483. Most recent from 12/22 was 443. She does have very heavy periods, with passage of clots and continuous periods for months at end. Most likely she has: 1. REACTIVE THROMBOCYTOSIS: With underlying iron deficiency anemia. DIFFERENTIAL DIAGNOSIS: 2. ESSENTIAL THROMBOCYTOSIS: This is less likely. Sometimes the it is seen in young women. PLAN: I will proceed with further evaluation. Will recheck platelet count today. Will check iron studies: 43/424/. If these are low will start her on iron replacement therapy. If these are normal will proceed with workup for essential thrombocytosis and check a JAK2 mutation. She will return in 3 months for a follow-up visit. Thank you, CC: Jonah Cota. - Time Spent With Patient Time Spent with Patient (in minutes): 40
[2021-01-10 11:55] LABS: Baso%MD 0.5 %; Eos%MD 3.9 %; Hematocrit 39.5 % (37-47); Hemoglobin 12.4 g/dl (12.0-16.0); IG%MD 1.3 %; Lymph%MD 23.7 %; Mean Corpuscular HGB Conc 31.4 g/dl (31.0-35.0); Mean Corpuscular Hemoglobin 25.1 pg (27.0-33.0); Mono%MD 7.5 %; Neut%MD 63.1 %; Platelet Count 419 X10*3/uL (160-400); Red Blood Count 4.94 X10*6/uL (4.20-5.50); Red Cell Distribution Width 15.2 % (11.0-16.0)
--- NOTE | 2021-01-10 11:58 | PM.HEMONCCN ---
Subjective - Subjective Chief complaint: Consult for: Essential thrombocytosis. Patient: new to practice Consult date: 01/10/21 Requesting Physician: Cipriano. [facility] Summary: DIAGNOSIS: THROMBOCYTOSIS. HPI - Consult Narrative Reason for consult: Consult for: Thrombocytosis. Narrative: This is a pleasant 30-year-old lady who has been noted to have mild thrombocytosis. Review of her labs revealed the following platelet trend: 10/20: 419. 11/29/2018: 355. 04/22:483. CBC from 12/22: WBC 10.5, HGB 12.6, HCT 40.5, PLT 443. ROS: She tells me she is always tired, sometimes fatigued. She denies fever nor chills. Appetite is good. Her weight fluctuates. Sometimes she gained 5 lb and sometimes she loses it. She denies headaches. Sometimes he gets dizzy. If she is very active she sweats it increases her vaginal bleeding, she then feels rather dizzy. She denies chest pain. Sometimes he gets short of breath on exertion. No abdominal pain nausea vomiting heartburn indigestion. Bowels are working without any gross blood in it. She does have post cholecystectomy diarrhea at times. She denies dysuria or hematuria. Her periods are very heavy. Lately they have worsened. She has menometrorrhagia. They are continuous. She does not get a break. Sometimes only for a day or 2. She is scheduled for an endometrial biopsy on 01/21. She denies joint pain or muscle pain. Denies depression. She does have eczema. Family history: Her mom has thyroid problems. A niece has anemia. No other hem/onc problems. 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 She is . She has adopted children. She denies smoking. She drinks rarely only on holidays. Review of Systems - Constitutional Reports no additional constitutional complaints, Reports fatigue, Reports lack of energy, Reports malaise, Reports weakness, Denies weight loss - Eyes Reports no additional eye complaints, Denies blurry vision - ENT Reports no additional ear, nose, mouth, and throat complaints - Cardiovascular Reports no additional cardiovascular complaints, Reports lightheadedness, Reports shortness of breath with activity - Respiratory Reports no additional respiratory complaints - Gastrointestinal Reports no additional gastrointestinal complaints, Reports diarrhea - Genitourinary Reports no additional female genitourinary complaints, Reports abnormal periods, Reports abnormal vaginal bleeding, Reports bleeding between periods - Musculoskeletal Reports no additional musculoskeletal complaints - Integumentary/Breasts Skin/Breast: Reports no additional skin complaints - Neurologic Reports no additional neurologic complaints, Reports dizziness, Reports weakness - Psychiatric Reports no additional psychiatric complaints - Endocrine Reports no additional endocrine complaints - Hematologic/Lymphatic Reports no additional hematologic/lymphatic complaints - Allergic/Immunologic Reports no additional allergic/immunologic complaints [facility] Medical History: Medical History (Last Reviewed 01/10/21 @ 10:59 by Autumn Braun) Hirsutism History of pancreatitis Iron deficiency anemia due to chronic blood loss Menorrhagia with irregular cycle Morbid obesity with BMI of 50.0-59.9, adult Functional capacity: independent ambulation Patient : No Family History: Family History (Last Updated 01/10/21 @ 11:00 by Autumn Braun) Father Diabetes Hypertension Mother Diabetes Hypertension Thyroid cancer Other Cancer Surgical History: Surgical History (Last Reviewed 01/10/21 @ 10:59 by Autumn Braun) History of tonsillectomy S/P cholecystectomy Social History: Social History (Last Reviewed 01/10/21 @ 11:02 by Autumn Braun) Living Situation History: Household Members: Spouse Household Members: Children Housing: House Alcohol History: Alcohol intake: current Alcohol History Details: Alcohol intake frequency: holiday/special occasion Alcohol type: beer Alcohol type: hard liquor Tobacco History: Patient Tobacco Use Status: Never used Tobacco Nutrition Assessment: Patient : No Occupation Assessmet: service: No Current occupational status: employed Home Medications and Allergies Allergies Allergy/AdvReac Type Severity Reaction Status Date / Time No Known Allergies Allergy Verified 12/23/20 07:55 [No Known Allergies*] Physical Exam Vital signs: Vital Signs Temp 98.9 F 01/10/21 10:55 Pulse 82 01/10/21 10:55 Resp 22 H 01/10/21 10:55 BP 122/70 01/10/21 10:55 Pulse Ox 98 01/10/21 10:55 Intake & Output 01/09/21 01/10/21 01/10/21 18:59 06:59 18:59 Other: Weight 127 kg [place] Weight in Grams [id number] Weight 127 kg - Constitutional Present: mild distress - Routine Neck Exam Present: supple, trachea midline - Routine Abdominal Exam Present: normal bowel sounds, soft, nontender - Routine Rectal Exam Patient deferred: digital exam - Routine Extremities Exam Present: normal inspection - Routine Skin Exam Present: intact - Routine Neurological Exam Present: alert, oriented X3 - Detailed Neurological Exam: Coma Scale Eye Opening: Spontaneous (4) Verbal Response: Oriented (5) Motor Response: Obeys commands (6) Erick Coma Scale Total: 15 - Routine Psychiatric Exam Present: normal affect Hem/Onc Consult Result - Labs CBC & Chem 7: 01/10/21 11:47 01/10/21 11:47 Labs: Short CBC 01/10/21 Range/Units 11:47 WBC 10.0 (4.8-10.8) X10*3/uL Hgb 12.4 (12.0-16.0) g/dl Hct 39.5 (37-47) % Plt Count 419 H (160-400) X10*3/uL Assessment and Plan (1) Thrombocytosis Status: Acute This is a pleasant 30-year-old lady who has been noted to have mild thrombocytosis over the years. Platelet count from 04/22 was 483. Most recent from 12/22 was 443. She does have very heavy periods, with passage of clots and continuous periods for months at end. Most likely she has: 1. REACTIVE THROMBOCYTOSIS: With underlying iron deficiency anemia. DIFFERENTIAL DIAGNOSIS: 2. ESSENTIAL THROMBOCYTOSIS: This is less likely. Sometimes it is seen in young women. PLAN: I will proceed with further evaluation. Will recheck platelet count today. They are down to 417,000. Will check iron studies: 43/424/. If these are low will start her on iron replacement therapy. If these are normal will proceed with workup for essential thrombocytosis and check a JAK2 mutation. She will return in 3 months for a follow-up visit. Thank you, CC: Jonah Cota. Dr. Tamera Aleman.
[2021-01-10 12:21] LABS: Alanine Aminotransferase 28 U/L (0-31); Albumin Level 4.3 g/dL (3.5-5.0); Alkaline Phosphatase 91 U/L (39-117); Anion Gap 14 (12-20); Aspartate Amino Transferase 18 U/L (5-31); Bilirubin Total 0.4 mg/dL (0.0-1.0); Blood Urea Nitrogen 14 mg/dL (9-16); Carbon Dioxide 27 mmol/L (22-29); Chloride 101 mmol/L (96-108); Creatinine Clr Calc Pharmacy 117.6; Estimated Glomerular Filt Rate > 60; Glucose Random 99 mg/dL (60-115); Iron 43 mcg/dL (30-160); Percent Iron Saturation 10 % (15-50); Potassium 4.1 mmol/L (3.3-5.1); Sodium 138 mmol/L (135-145); Total Iron Binding Capacity 424 mcg/dL (228-428); Total Protein 7.6 g/dL (6.5-8.0); Unsaturated Iron Binding 381 ug/dL
[2021-01-10 12:41] LABS: Ferritin 37 ng/mL (10-122)
--- NOTE | 2021-01-10 13:44 | MHC.HEMONCMA ---
Pt came in for hem consult and states she is experiencing heavy menstrual cycles. clinical summary was updated and labs were drawn. pt will be seen in 3 months for f/u visit.
[2021-01-10 13:48] LABS: Band Neutrophils Percent 2 % (3-5); Lymphocytes Absolute Manual 2.1 X10*3/uL (0.6-4.8); Lymphocytes Percent Manual 21 % (20-40); Monocytes Absolute Manual 0.8 X10*3/uL (0.0-1.2); Monocytes Percent Manual 8 % (2-11); Neutrophils Absolute Manual 7.1 X10*3/uL (2.2-7.9); Neutrophils Percent Manual 69 % (45-73)
[2021-01-10 13:49] LABS: Platelet Estimate NORMAL (NORMAL); Platelet Morphology Comment NORMAL; RBC Morphology NORMAL
== END | disposition home or self-care (01) ==
LOC: HO.ONC 01-10 10:48
PROVIDERS: PCP Nurse Practitioner Family; Referring Provider Nurse Practitioner Family; Visit Provider Internal Medicine Medical Oncology
DX: D47.3 Essential (hemorrhagic) thrombocythemia (principal)
CPT/HCPCS: 36415; 80053; 82728; 83540; 85007; 85027; 99204

== ENCOUNTER 2024-06-24 08:49 | Outpatient (REF) | payer OTHER, SELFPAY ==
--- OUTSIDE RECORDS SUMMARY | 2024-06-25 12:28 | XMS_ITS | Clinical Summary ---
Author Organization [facility] ity Address [address] [place] [address] Care Team Providers Care Paper Feeder Name Role Phone CedrickTere graves DO Primary Care Pro vider Surgical History Surgery Date Site/Laterality Comments TONSILLECTOMY childhood PROCEDURE: HISTORICAL TONSILLECTOMY Medical History Medical History Date Comments Pancreatitis DX:Pancreatitis; COMMENT: mild Irregular menses DX:Irregular me nses Eczema DX:Eczema Bronchitis 2014 DX:Bronchitis Menorrhagia DX:Menorrhagia Family History Medical History Relation Name Comments Diabetes Father Hypertension Mother Other: breast mass Mother benign Relation Name Status Comments Father Alive Mother Alive Social History Tobacco Use Types Packs/Day Years Used Date Smoking Tobacco: Never Alcohol Use Standard Drinks/Week Comments Yes 0 (1 standard drink = 0.6 oz pur e alcohol) Sex and Gender Information Value Date Recorded Sex Assigned at Not on file Gender Identity Not on file Sexual Orientation Not on file Obstetrics History Plan of Treatment Health Maintenance Due Date Last Done Comments DTaP,Tdap,and Td Vaccines (1 - Tdap) 2010 Hepatitis B Vaccines (1 of 3 - 19+ 3-dose series) 2010 Cervical Cancer Screening: P ap Smear 2012 COVID-19 Vaccine ( - 2023-2 5 season) 2024 Influenza Vaccine (#1) 2024 HIB Vaccines Aged Out No longer eligi ble based on patient's age to complete this topic HPV Vaccines Aged Out No longer eligi ble based on patient's age to complete this topic Hepatitis A Vaccines Aged Out No long er eligible based on patient's age to complete this topic IPV Vaccines Aged Out No longer eligi ble based on patient's age to complete this topic MMR Vaccines Aged Out No longer eligi ble based on patient's age to complete this topic Meningococcal ACWY Vaccine Aged Out N o longer eligible based on patient's age to complete this topic Pneumococcal Vaccine: Pediat rics (0 to 5 Years) and At-Risk Patients (6 to 64 Years) Aged Out No longer eligible b ased on patient's age to complete this topic RSV Immunization Patients Un zelalem 20 months Aged Out No longer eligible b ased on patient's age to complete this topic Varicella Vaccines Aged Out No longer eligible based on patient's age to complete this topic Care Teams Paper Feeder Relationship Specialty Start Date End Date Tere Vale DO [address] [phone] PCP - General 07/08/13
[2024-06-29 13:25] LABS: H Pylori Breath Test Negative (Negative)
== END 2024-06-24 08:50 | disposition home or self-care (01) ==
LOC: HO.LNP 08:49
PROVIDERS: PCP Nurse Practitioner Family; Visit Provider Nurse Practitioner Family
DX: R74.8 Abnormal levels of other serum enzymes (principal); E66.01 Morbid (severe) obesity due to excess calories; Z68.43 Body mass index [BMI] 50.0-59.9, adult; K21.9 Gastro-esophageal reflux disease without esophagitis; R10.13 Epigastric pain; K59.01 Slow transit constipation
CPT/HCPCS: 83013; 99212

== ENCOUNTER 2024-06-24 08:49 | Outpatient (AMB) | payer OTHER, SELFPAY ==
[2024-06-24 08:52] VITALS: BP 136/76; PULSE 72; O2SAT 99; BMI 55.9
--- NOTE | 2024-06-24 08:52 | A.OFFVIS_ITS ---
Vital Signs 06/24/24 08:52 Height 5 ft Weight 286 lb 2.56 oz BMI 55.9 BP 136/76 Blood Pressure Location Rt brachial Position Sitting Pulse 72 Pulse Source Pulse Oximeter Pulse Oximetry (%) 99 Oxygen Delivery Method Room Air Intake Visit Reasons: Pt req appointment Intake Note: ESTABLISHED PATIENT Reason; >1 YR FUV. Changes/concerns? Abd distention, bloating, epigastric pain. GERD, famotidine not working as well anymore. Worsening constipation. No hx of egd/colo. Allergies No Known Allergies [No Known Allergies*] Allergy (Verified 06/24/24 08:53) HPI HPI Pt req appointment: Details: LAST VISIT: GERD (gastroesophageal reflux disease) Discussed with patient avoiding dietary triggers and late night snacking. Staying upright for minimal 3 hours after meals discussed with patient. Patient is taking famotidine and reports to be feeling better Epigastric pain Patient reports that epigastric discomfort has improved. Patient is avoiding dietary triggers. Now that she is moving her bowels better she is feeling better. Taking famotidine and avoiding certain food helps Constipation Patient can increase Senokot to 2 tablets every evening. Patient can also take Colace. Patient was encouraged to increase fluid intake and activity to promote better bowel motility. I will see her in 3 months, sooner on as needed basis. Patient is agreeable to this plan and verbalizes understanding of instructions. She was given the opportunity to ask questions and all questions answered. ? Thank you for allowing me to participate in her care Plan Medications New docusate sodium 100 mg PO BEDTIME 90 caps 3RF K59.00 - Constipation, unspecified famotidine (Pepcid) 20 mg PO BEDTIME 30 tabs 3RF K21.9 - Gastro-esophageal reflux disease without esophagitis Changed From sennosides (Natural Senna Laxative) 8.6 mg PO BEDTIME 90 tabs 3RF constipation K59.00 - Constipation, unspecified To sennosides (Natural Senna Laxative) 17.2 mg (2 x 8.6 mg) PO BEDTIME 180 tabs 3RF constipation K59.00 - Constipation, unspecified TODAY'S VISIT Patient is here today for requested visit. Patient has not followed up in the office for over a year. Patient reports returning symptoms of acid reflux. Pepcid no longer works. Postprandial epigastric pain. Feels like the food is getting stuck in her stomach. Acid reflux mainly in the morning and lingers throughout the day. Patient denies any dyspepsia, dysphagia or odynophagia. Patient is trying to eat healthier. [place]ak[place] food mainly. History of fatty liver, increased liver enzymes in the past. We will repeat that today. Patient reports constipation is getting worse. In the past patient was taking Senokot, however reports that it was not working for her. Patient reports that after bowel movement she does not feel like she empties completely. Patient denies any melena, hematochezia, unintentional weight loss or ribbon like stools. Patient reports that she is struggling to lose weight. Tried many differen diets not being successful. Patient denies any nausea or vomiting. Postprandial abdominal cramping and bloating. Denies any other GI symptoms. [facility] Medical History Fatty liver GERD (gastroesophageal reflux disease) Arcuate uterus PCOS (polycystic ovarian syndrome) Morbid obesity with BMI of 50.0-59.9, adult History of pancreatitis Iron deficiency anemia due to chronic blood loss Hirsutism Menorrhagia with irregular cycle Surgical History S/P cholecystectomy History of tonsillectomy Family History Father Diabetes Hypertension Mother Diabetes Hypertension Thyroid cancer Maternal Grandmother Breast cancer Social History Household Members: Spouse and Children Housing: House Alcohol intake: current Alcohol intake frequency: holidays/special occasions only Alcohol type: beer and hard liquor Patient Tobacco Use Status: Never used Tobacco e-Cigarette/Vaping Use: Never Used Second Hand Smoke Exposure: Yes service: No Current occupational status: employed Current occupation: [employer] Current occupational exposures/hazards: No Cognitive needs: No Hearing needs: No Vision needs: No Female Reproductive History Menstrual Age of Menarche: 11 Review of Systems Const Denies weight gain and Denies weight loss ENT Reports no additional complaints, Denies dysphagia and Denies odynophagia Card Reports no additional complaints Resp Reports no additional complaints GI Reports abdominal pain, Denies belching, Denies melena, Reports bloating, Denies change in bowel habits, Reports constipation, Denies dysphagia, Denies excessive flatus, Denies dyspepsia, Reports heartburn, Denies diarrhea, Denies loose stools, Denies nausea, Denies odynophagia and Denies vomiting Reports no additional complaints Musc Reports no additional complaints Neuro Reports no additional complaints Psych Reports no additional complaints Endo Reports no additional complaints Physical Exam Const General: healthy appearing and no acute distress Nutritional Appearance: obese Orientation/consciousness: patient oriented x3 Resp Effort & Inspection: normal respiratory effort, able to speak in complete sentences, no tracheal deviation and symmetric chest movement Auscultation: clear to auscultation bilaterally Cardio Rate: regular rate GI Inspection: Yes normal to inspection, No distended and Yes obesity Palpation (GI): Soft to palpation, not firm, nontender and No hepatosplenomegaly present Auscultation: normal bowel sounds General: Yes no CVA tenderness Back/Spine/Pelvis Back: no CVA tenderness Skin General skin exam: elasticity normal, turgor normal and dry skin Neuro General: patient oriented x3 Psych Appearance: grossly normal Mental Status: mental status grossly normal Assessment & Plan Assessment & Plan (1) Elevated liver enzymes: Code(s): R74.8 - Abnormal levels of other serum enzymes Category: Medical (2) Morbid obesity with BMI of 50.0-59.9, adult: Code(s): E66.01 - Morbid (severe) obesity due to excess calories; Z68.43 - Body mass index [BMI] 50.0-59.9, adult Category: Medical (3) GERD (gastroesophageal reflux disease): Code(s): K21.9 - Gastro-esophageal reflux disease without esophagitis Category: Medical Qualifiers: Esophagitis presence: esophagitis presence not specified Qualified Code(s): K21.9 - Gastro-esophageal reflux disease without esophagitis (4) Epigastric pain: Code(s): R10.13 - Epigastric pain Category: Medical (5) Constipation: Code(s): K59.00 - Constipation, unspecified Qualifiers: Constipation type: slow transit constipation Qualified Code(s): K59.01 - Slow transit constipation Plan Will order ultrasound to re-evaluate the liver, liver enzymes as well. Upper GI series with barium swallow to evaluate for reflux, hernia. Check vitamin-D B12 and folate. Thyroid study. Patient will start taking pantoprazole and hold famotidine. Avoid dietary triggers and late night snacking. Staying upright for minimum 3 hours after meals discussed with patient. H pylori testing in the office today. Will treat empirically if positive. Patient will start taking Dulcolax daily. Increase fluid intake and activity to promote better bowel motility. Encouraged patient to try to lose weight. Low fat, low salt, low carb and high-protein diet recommended. Patient will return in 2 months, sooner on as needed basis. She is agreeable to this plan and verbalizes understanding of instructions. She was given the opportunity to ask questions all questions answered Thank you for allowing me to participate in her care Orders: Orders US abdomen limited Today R79.89 - Other specified abnormal findings of blood chemistry H Pylori Breath Test Today K21.9 - Gastro-esophageal reflux disease without esophagitis Liver Panel Today R74.01 - Elevation of levels of liver transaminase levels FL upper GI w Ba Swallow Today K21.9 - Gastro-esophageal reflux disease without esophagitis Vitamin D 25-OH (D2 and D3) Today E55.9 - Vitamin D deficiency, unspecified Vitamin B12 and Folate Today R19.7 - Diarrhea, unspecified TSH reflex Free T4 Today K59.00 - Constipation, unspecified Medications: New bisacodyl (Dulcolax (bisacodyl)) 10 mg (2 x 5 mg) PO BEDTIME 180 tabs 4RF pantoprazole take one tablet half an hour before breakfast 40 mg PO DAILY 30 tabs 2RF K21.9 - Gastro-esophageal reflux disease without esophagitis Coding Level of Care Code Est Pt Level 4 (34583) Diagnoses Elevated liver enzymes R74.8 Morbid obesity with BMI of 50.0-59.9, adult E66.01; Z68.43 Gastroesophageal reflux disease, unspecified whether esophagitis present K21.9 Esophagitis presence: esophagitis presence not specified Epigastric pain R10.13 Slow transit constipation K59.01 Constipation type: slow transit constipation Time Spent (min) 40 Comment 25 minutes spent with patient and additional 10 minutes spent reviewing her records
== END 2024-06-24 09:30 | disposition home or self-care (01) ==
PROVIDERS: PCP Nurse Practitioner Family; Visit Provider Nurse Practitioner Family
DX: R74.8 Abnormal levels of other serum enzymes (principal); E66.01 Morbid (severe) obesity due to excess calories; Z68.43 Body mass index [BMI] 50.0-59.9, adult; K21.9 Gastro-esophageal reflux disease without esophagitis; R10.13 Epigastric pain; K59.01 Slow transit constipation
CPT/HCPCS: 99214

== ENCOUNTER 2024-07-08 07:35 | Outpatient (REF) | payer OTHER, SELFPAY ==
--- NOTE | ~2024-07-08 | FL_ITS ---
EXAMINATION: XR FLUOROSCOPY UPPER GI WITH AIR CLINICAL INFORMATION: Reflux. COMPARISON: None TECHNIQUE: Fluoroscopic air contrast upper GI examination was performed utilizing standard techniques with thin and thick barium and effervescent granules. Numerous spot images were obtained. FINDINGS: Dual and single contrast images of the esophagus demonstrate normal caliber, contour, and mucosal pattern. No evidence of stricture, mass, or ulcerations identified. Esophageal peristalsis is mildly disorganized. A very small type I hiatal hernia is present. No significant gastroesophageal reflux was seen during the course of the examination and on reflux views. Surgical clips are present in the right upper quadrant. Dual contrast and single contrast images of the stomach demonstrated a normal contour and mucosal pattern without evidence of mass, ulceration, or other abnormality. Contrast freely passed into the gastric antrum and duodenal bulb without delay. Single and air-contrast images of the duodenal bulb demonstrate no abnormality. The duodenal sweep has a normal appearance, course, and mucosal fold appearance. The imaged proximal jejunum has a normal fold pattern and caliber. FLUOROSCOPY TIME: 4 minutes 3 seconds Number of Spot Images: 7 Number of Cine: 14 DOSE AREA PRODUCT: 3275 uGy-m2 (microgray-meter squared) FL/FL upper GI w Ba Swallow IMPRESSION: 1. Mildly disorganized esophageal peristalsis. 2. Very small type I hiatal hernia. 3. Status post cholecystectomy. This procedure was performed by Tiago Zapata PA-C, and supervised by Dr. Escalante Electronically signed by: Reji Escalante MD 07/09/2024 03:30 PM [facility] [place] [place] Workstation: [facility] [id number]
--- OUTSIDE RECORDS SUMMARY | 2024-07-08 07:38 | XMS_ITS | Clinical Summary ---
Author Organization [facility] ity Address [address] [place] [address] Care Team Providers Care Manager Of Operations Name Role Phone CedrickTere graves DO Primary [...] age to complete this topic Care Teams Manager Of Operations Relationship Specialty Start Date End Date Tere Vale DO [address] [phone] PCP - General 07/08/13
== END 2024-07-08 07:36 | disposition home or self-care (01) ==
LOC: HO.XRAY 07:35
PROVIDERS: PCP Nurse Practitioner Family; Visit Provider Nurse Practitioner Family
DX: K21.9 Gastro-esophageal reflux disease without esophagitis (principal)
CPT/HCPCS: 74240

== ENCOUNTER → 2024-07-08 07:37 | Outpatient (BNV) | payer OTHER, SELFPAY | PROVIDERS: PCP Nurse Practitioner Family; Visit Provider Physician Assistant Surgical | DX: K21.9 Gastro-esophageal reflux disease without esophagitis (principal) | CPT/HCPCS: 74246; 74248 ==

== ENCOUNTER 2024-07-11 11:12 | Outpatient (REF) | payer OTHER, SELFPAY ==
--- NOTE | ~2024-07-11 | US_ITS ---
CLINICAL HISTORY: R79.89 - Other specified abnormal findings of blood chemistry US abdomen limited Comparison: None Findings: The visualized pancreas is normal. The aorta and inferior vena cava are normal caliber. The appearance of the liver suggests fatty infiltration without focal lesion. There is no intrahepatic bile duct dilatation. The common duct is 4.1 mm in diameter. There are no abnormal findings in the gallbladder fossa. There is no sonographic Louis sign. The main portal vein is antegrade. The right kidney is 10.3 cm in length. No ascites. IMPRESSION: Hepatic steatosis. This document has been electronically signed by: Guru Rollins MD on 07/12/2024 09:08:19
--- OUTSIDE RECORDS SUMMARY | 2024-07-11 12:13 | XMS_ITS | Clinical Summary ---
Author Organization [facility] ity Address [address] [place] [address] Care Team Providers Care Lead Janitor Name Role Phone CedrickTere graves DO Primary [...] age to complete this topic Care Teams Lead Janitor Relationship Specialty Start Date End Date Tere Vale DO [address] [phone] PCP - General 07/08/13
== END 2024-07-11 11:13 | disposition home or self-care (01) ==
LOC: HO.HMGCX 11:12
PROVIDERS: PCP Nurse Practitioner Family; Visit Provider Nurse Practitioner Family
DX: R79.89 Other specified abnormal findings of blood chemistry (principal)
CPT/HCPCS: 76705

== ENCOUNTER → 2024-07-11 11:14 | Outpatient (BNV) | payer OTHER, SELFPAY | PROVIDERS: PCP Nurse Practitioner Family; Visit Provider Specialist | DX: R79.89 Other specified abnormal findings of blood chemistry (principal) | CPT/HCPCS: 76705 ==

== ENCOUNTER 2024-07-22 12:41 | Outpatient (AMB) | payer OTHER, SELFPAY ==
--- NOTE | 2024-07-22 13:05 | A.OFFVIS_ITS ---
Vital Signs 07/22/24 13:10 Height 5 ft Weight 277 lb BMI 54.1 BP 122/70 Blood Pressure Location Lt brachial Position Sitting Intake Visit Reasons: INSULATION INSTALLER annual exam Math Instructor Required: No Allergies No Known Allergies [No Known Allergies*] Allergy (Verified 07/22/24 13:14) Medication List - Last Reconciled 07/22/24 by Allison Diego LPN albuterol sulfate 90 mcg/actuation 2 puffs inhalation Q6H PRN bisacodyl (Dulcolax (bisacodyl)) 10 mg (2 x 5 mg) PO BEDTIME calcium carbonate (Tums) 300 mg PO BID cetirizine (Zyrtec) 10 mg PO DAILY PRN cholecalciferol (vitamin D3) 50 mcg PO DAILY famotidine (Pepcid) 20 mg PO BEDTIME levonorgestrel (Kyleena) intrauterine Is last menstrual period known: No Post menopausal: No Patient : No Do you need a note to return to daycare/school/sports/work: No HPI Comments Details: She is a premenopausal woman presenting for annual examination. 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 Kyleena user, has a few episodes of bleeding a year. Currently is sexually active. She denies vaginal itching and irritation. STI screening offered; she declines. She tries to eat healthy and stays active with exercise. Denies family history of breast, ovarian or colon cancer. Last pap smear 2021, negative. [facility] Medical History (Updated 07/22/24 @ 13:34 by Jane Cordova CNM) IUD (intrauterine device) in place Fatty liver GERD (gastroesophageal reflux disease) Arcuate uterus PCOS (polycystic ovarian syndrome) Morbid obesity with BMI of 50.0-59.9, adult History of pancreatitis Iron deficiency anemia due to chronic blood loss Hirsutism Menorrhagia with irregular cycle Surgical History S/P cholecystectomy History of tonsillectomy Family History Father Diabetes Hypertension Mother Diabetes Hypertension Thyroid cancer Maternal Grandmother Breast cancer Social History Household Members: Spouse and Children Housing: House Alcohol intake: current Alcohol intake frequency: holidays/special occasions only Alcohol type: beer and hard liquor Patient Tobacco Use Status: Never used Tobacco e-Cigarette/Vaping Use: Never Used Second Hand Smoke Exposure: Yes Patient : No service: No Current occupational status: employed Current occupation: [employer] Current occupational exposures/hazards: No Cognitive needs: No Hearing needs: No Vision needs: No Female Reproductive History Menstrual Age of Menarche: 11 control method: other (Kyleena) Total pregnancies: 0 Date of last pap smear: 02/16/22 History of abnormal pap smear: Yes History of STI: No Review of Systems Const All systems reviewed & are unremarkable except as noted in HPI and below Reports as per HPI Eyes Reports no additional complaints ENT Reports no additional complaints Card Reports no additional complaints Resp Reports no additional complaints GI Reports as per HPI and Reports no additional complaints Reports as per HPI Musc Reports no additional complaints Skin/Breast Reports as per HPI Neuro Reports no additional complaints Psych Reports no additional complaints Endo Reports no additional complaints Zay/Lymph Reports no additional complaints Aller/Immun Reports no additional complaints Physical Exam Vital Signs: Last Vital Signs BP 122/70 07/22/24 13:10 BMI result Body Mass Index 54.1 Const General: cooperative, healthy appearing, no acute distress, well developed and alert Orientation/consciousness: patient oriented x3 HEENT Head: Yes normal to inspection Eyes General: appearance normal, both eyes and all related structures Neck Neck: Yes normal visual inspection Thyroid: Thyroid normal Chest Chest palpation & inspection: normal inspection of the chest and other (no puckering, dimpling, peau de orange, retraction, discharge, masses) Breast/axilla inspection: normal inspection of the breasts Breast/axilla palpation: normal palpation of the breasts Resp Effort & Inspection: normal respiratory effort GI Inspection: Yes normal to inspection and Yes obesity Palpation (GI): Soft to palpation Rectal Exam - Female: deferred General: Yes bladder normal to palpation External Female Exam: normal external appearance and normal appearance of the urethra Speculum Exam - Vagina: normal appearance of the vagina, normal palpation and normal vaginal discharge Speculum Exam - Cervix: normal appearance of the cervix, normal palpation and Other cervical findings present (IUD strings at the os) Bimanual exam- vagina & uterus: normal bimanual exam, normal palpation, uterine size normal, bladder normal to palpation, normal palpation and non-tender Bimanual Exam- Adnexa, other: no masses Skin General skin exam: no rashes or lesions noted Rashes: no rashes Neuro General: patient oriented x3 Cognition (Neuro): normal cognition Extrem General: Yes normal to inspection Psych Attitude: cooperative Thought process: Normal thought process present Assessment & Plan Assessment & Plan (1) Encounter for well woman exam with routine gynecological exam: Code(s): Z01.419 - Encounter for gynecological examination (general) (routine) without abnormal findings Category: Medical Plan Discussed: Current recommendations for pap smears per ASCCP guidelines. Pap obtained. Breast awareness and periodic breast exams. Maintain a healthy lifestyle including a well balanced diet and routine exercise. Patient verbalizes understanding and agrees to the plan of care. She was given opportunity to ask questions and all questions were answered to the best of my ability. RTO in one year for annual aviation warfare systems operator examination. This note is constructed using voice recognition software. While every effort has been made to ensure accuracy, floor worker well service errors may have been included. Coding Level of Care Code Est Pt Prev Care 18-39y(41526) Diagnoses Encounter for well woman exam with routine gynecological exam Z01.419
[2024-07-22 13:10] VITALS: BP 122/70; BMI 54.1
--- OUTSIDE RECORDS SUMMARY | 2024-07-22 13:34 | XMS_ITS | Clinical Summary ---
Author Organization [facility] ity Address [address] [place] [address] Care Team Providers Care Roof Tiler Name Role Phone CedrickTere graves DO Primary [...] drink = 0.6 oz pur e alcohol) Comments Unknown Sex and Gender Information Value Date Recorded Sex Assigned at Not on file Legal Sex Female 5:36 PM EST Gender Identity Not on file Sexual Orientation Not on file Obstetrics History Plan of Treatment Health Maintenance Due Date Last Done Comments DTaP,Tdap,and Td Vaccines (1 - Tdap) 2010 Hepatitis B Vaccines (1 of 3 - 19+ 3-dose series) 2010 Cervical Cancer Screening: P ap Smear 2012 COVID-19 Vaccine (2023-2 5 season) 2024 Influenza Vaccine (#1) 2024 [...] patient's age to complete this topic Meningococcal B Vacine Aged Out No lo nger eligible based on patient's age to complete [...] age to complete this topic Care Teams Roof Tiler Relationship Specialty Start Date End Date Tere Vale DO [address] [phone] PCP - General 07/08/13
== END 2024-07-22 13:47 | disposition home or self-care (01) ==
LOC: HO.HWS 12:41
PROVIDERS: PCP Nurse Practitioner Family; Visit Provider Advanced Practice Midwife
DX: Z01.419 Encounter for gynecological examination (general) (routine) without abnormal findings (principal)
CPT/HCPCS: 99395; 99459

== ENCOUNTER 2024-07-22 12:41 | Outpatient (REF) | payer OTHER, SELFPAY ==
--- OUTSIDE RECORDS SUMMARY | 2024-07-22 14:56 | XMS_ITS | Clinical Summary ---
Author Organization [facility] ity Address [address] [place] [address] Care Team Providers Care Career And Guidance Counselor Name Role Phone CedrickTere graves DO Primary [...] age to complete this topic Care Teams Career And Guidance Counselor Relationship Specialty Start Date End Date Tere Vale DO [address] [phone] PCP - General 07/08/13
[2024-07-28 14:44] LABS: HPV Genotype 16 Negative (Negative); HPV Genotype 18 Negative (Negative); HPV High Risk Negative (Negative)
== END 2024-07-22 12:42 | disposition home or self-care (01) ==
LOC: HO.LNP 12:41
PROVIDERS: PCP Nurse Practitioner Family; Visit Provider Advanced Practice Midwife
DX: Z01.419 Encounter for gynecological examination (general) (routine) without abnormal findings (principal)
CPT/HCPCS: 87626; 88175; 99395; 99459

== ENCOUNTER 2024-08-13 10:06 | Outpatient (AMB) | payer OTHER, SELFPAY ==
[2024-08-13 10:23] VITALS: BP 120/76; PULSE 78; TEMP 36.6; O2SAT 97; BMI 54.1
--- NOTE | 2024-08-13 10:23 | A.OFFPC_ITS ---
Vital Signs 08/13/24 10:23 Height 5 ft Weight 277 lb BMI 54.1 BP 120/76 Blood Pressure Location Lt brachial Position Sitting Pulse 78 Pulse Source Pulse Oximeter Temp 97.9 F Temp Source Oral Pulse Oximetry (%) 97 Intake Visit Reasons: request pulm referral/Needs change PCP w Insurance Allergies No Known Allergies [No Known Allergies*] Allergy (Verified 08/13/24 10:58) Medication List - Last Reconciled 08/13/24 by CHASE Mills- albuterol sulfate 90 mcg/actuation 2 puffs inhalation Q6H PRN bisacodyl (Dulcolax (bisacodyl)) 10 mg (2 x 5 mg) PO BEDTIME calcium carbonate (Tums) 300 mg PO BID cetirizine (Zyrtec) 10 mg PO DAILY PRN cholecalciferol (vitamin D3) 50 mcg PO DAILY famotidine (Pepcid) 20 mg PO BEDTIME levonorgestrel (Kyleena) intrauterine Tobacco use date assessed: 08/13/24 Dental Screening Dental Screen Date: 08/13/24 Did you have a dental visit in the last 12 months?: No Did you have a dental problem in the last 6 months where you did not have access to dental care?: No Was dental information given to patient?: Patient declined HPI request pulm referral/Needs change PCP w Insurance HPI Details Chief Complaint The patient presents with intermittent wheezing and shortness of breath. History of Present Illness The patient is a 34-year-old female presenting with intermittent wheezing and shortness of breath. She acknowledges utilizing albuterol or short-acting beta agonists around twice a week, having experienced relief from these episodes. There is no documented history of asthma diagnosis in her past, either in adulthood or childhood. Previously, she noted increased wheezing when exposed to secondhand smoke from her , although the frequency has decreased following smoking cessation by her . Despite this improvement, wheezing and shortness of breath still occur intermittently. Her acknowledgment of potential side effects associated with using short-acting beta agonists indicates awareness and understanding of her treatment regime. Her morbid obesity is considered a contributing factor to her respiratory symptoms, prompting consideration of a medical weight loss program. Social History - Her has ceased smoking. - The patient is morbidly obese and inte nds to start a medical weight loss program. Health Maintenance - Discussion about starting a medical we ight loss program. Review of Systems - Respiratory: Reports intermittent whee zing and shortness of breath. -denies any CP Physical Exam General: Cooperative, healthy appearing, comfortable, no acute distress and well developed. Morbidly obese Orientation: Patient oriented x3 Limitations: No limitations Head: Normal to inspection Ears: Hearing grossly normal bilaterally Nose: Normal external nose present Face and sinus: Normal facial exam Eyes: Appearance normal, both eyes and all related structures Neck: Normal visual inspection and Yes full ROM Respiratory: Clear to auscultation bilaterally Cardiovascular: Regular rate and rhythm. Normal S1 and S2 GI: Normal to inspection. Soft to palpation and nontender Skin: No rashes or lesions noted Neuro: Patient oriented x3 Extremities: Normal to inspection Results pft previously ordered, pt never went Plan The patient will be initiated on Symbicort at a low dose, with clear instructions on mouth rinsing post-use. I will arrange pulmonary function testing and pertinent blood work, and she will be referred to a leak detector for specialized care. Management of her morbid obesity through a medical weight loss program is also planned, which may positively impact her respiratory symptoms. Discussion Notes I discussed with the patient the initiation of Symbicort, highlighting the importance of rinsing her mouth after use to prevent possible oral side effects. I explained the role of pulmonary function testing and blood work in further evaluating her respiratory condition. The patient was informed about the referral to a language specialist for comprehensive care. The potential benefits of addressing her morbid obesity through a medical weight loss program were also discussed, emphasizing this as a significant aspect of her overall health management plan. Patient Instructions - Use Symbicort as prescribed and rinse your mouth after each use. - Undergo the pulmonary function testing and blood work as ordered. - Follow through with the referral to [facility] language specialist. - Begin the medical weight loss program as discussed. - Monitor symptoms and report any change s or concerns during follow-up. [facility] Medical History IUD (intrauterine device) in place Fatty liver GERD (gastroesophageal reflux disease) Arcuate uterus PCOS (polycystic ovarian syndrome) Morbid obesity with BMI of 50.0-59.9, adult History of pancreatitis Iron deficiency anemia due to chronic blood loss Hirsutism Menorrhagia with irregular cycle Surgical History S/P cholecystectomy History of tonsillectomy Family History Father Diabetes Hypertension Mother Diabetes Hypertension Thyroid cancer Maternal Grandmother Breast cancer Social History Household Members: Spouse and Children Housing: House Alcohol intake: current Alcohol intake frequency: holidays/special occasions only Alcohol type: beer and hard liquor Patient Tobacco Use Status: Never used Tobacco e-Cigarette/Vaping Use: Never Used Second Hand Smoke Exposure: Yes service: No Current occupational status: employed Current occupation: [employer] Current occupational exposures/hazards: No Cognitive needs: No Hearing needs: No Vision needs: No Female Reproductive History Menstrual Age of Menarche: 11 Questionnaire PHQ-9 Over the last 2 weeks, how often have you been bothered by any of the following problems? 1. Little interest or pleasure in doing things: several days 2. Feeling down, depressed, or hopeless: not at all 3. Trouble falling or staying asleep, or sleeping too much: several days 4. Feeling tired or having little energy: several days 5. Poor appetite or overeating: several days 6. Feeling bad about yourself - or that you are a failure or have let yourself or your family down: not at all 7. Trouble concentrating on things, such as reading the newspaper or watching television: several days 8. Moving or speaking so slowly that other people could have noticed. Or the opposite - being so fidgety or restless that you have been moving around a lot more than usual: not at all 9. Thoughts that you would be better off or of hurting yourself in some way: not at all Total score: 5 Depression Screening Interpretation: Negative Depression Screening Done: Yes 63438 - PHQ-9 Billing: Yes Source: Developed by Drs. Nino Hereida, Ariana Parker, Mirza Hallman and colleagues, with an educational khushbu from [employer]. Thrive Questionnaire Date Thrive assessed: 08/13/24 I am a: Patient What is your living situation today?: I have a steady place to live Within the past 12 months, did the food you bought not last and you didn't have the money to get more?: Never true Within the past 12 months, did you worry whether your food would run out before you got money to buy more?: Never true Do you have trouble paying for medicines?: No Do you have trouble getting transportation to medical appointments?: No Do you have trouble paying your heating and electricity bill?: No Do you have trouble taking care of your child, family member or friend?: No Do you have trouble with day-to-day activities such as bathing, preparing meals, shopping, managing finances, etc.?: No Are you currently unemployed and looking for a job?: No Are you interested in more education?: I choose not to answer this question Please select the resources that you would like help with: None Currently or been in a relationship where the following occur: No concerns reported THRIVE Score: 0 AUDIT C Alcohol Use Questionnaire (AUDIT-C) 1. How often do you have a drink containing alcohol?: Monthly or less 2. How many drinks containing alcohol do you have on a typical day when you are drinking?: 3 or 4 3. How often do you have six or more drinks on one occasion?: Less than monthly Total Score: 3 Score Reviewed/Action Taken: Yes SUZANNE-7 AMB Questionnaire SUZANNE-7 Date SUZANNE - 7 assessed: 08/13/24 Feeling nervous, anxious, or on edge: 1 = Several days Not being able to stop or control worryin = Several days Worrying too much about different things: 1 = Several days Trouble relaxin = Several days Being so restless that it is hard to sit still: 1 = Several days Becoming easily annoyed or irritable: 0 = Not at all Feeling afraid as if something awful might happen: 0 = Not at all Total SUZANNE-7 score (0-4 normal; 5-9 mild; 10-14 moderate; 15-21 severe): 5 Source: Developed by Drs. Nino Heredia, Ariana Parker, Mirza Hallman and colleagues, with an educational khushbu from [employer]. SUZANNE-7 Assessment Billing SUZANNE-7 Assessment Tool: SUZANNE-7 Assessment 26305 Physical exam (Primary Care) Vital Signs: Last Vital Signs Temp 97.9 F 08/13/24 10:23 Pulse 78 08/13/24 10:23 BP 120/76 08/13/24 10:23 Pulse Ox 97 08/13/24 10:23 BMI result Body Mass Index 54.1 Tobacco/Smoking Status: Tobacco use Status Tobacco use date assessed 08/13/24 08/13/24 10:25 Patient Tobacco Use Status Never used Tobacco 08/13/24 10:25 e-Cigarette/Vaping Use Never Used 08/13/24 10:25 PHQ-9: PHQ-9 Score PHQ-9: Total score 5 08/13/24 10:25 Depression Screening Interpretation: Negative Thrive Assessment: Date of Thrive Assessment Date Thrive assessed 08/13/24 08/13/24 10:25 Currently or been in a relationship where the following occur: No concerns reported Coding Level of Care Code Est Pt Level 3 (75177) Diagnoses Wheezing R06.2 Morbid obesity with BMI of 50.0-59.9, adult E66.01; Z68.43 Additional Codes SUZANNE-7 Assessment Billing - SUZANNE-7 Assessment Tool: SUZANNE-7 Assessment 39938 ([id number]) PHQ-9 - 71553 - PHQ-9 Billing: Yes ([id number]) Assessment & Plan Assessment & Plan (1) Wheezing: Code(s): R06.2 - Wheezing Category: Medical (2) Morbid obesity with BMI of 50.0-59.9, adult: Code(s): E66.01 - Morbid (severe) obesity due to excess calories; Z68.43 - Body mass index [BMI] 50.0-59.9, adult Category: Medical Plan . Orders: Orders Pulmonary Test/Procedure Today R06.2 - Wheezing Resp Allergy Profile Region I Today R06.2 - Wheezing TSH reflex Free T4 Today R06.2 - Wheezing Immunoglobulin E Today R06.2 - Wheezing Complete Blood Count Auto Diff Today R06.2 - Wheezing Comprehensive [place]. Panel Fast Today R06.2 - Wheezing UA CC w/rflx Micro + Cult Today R06.2 - Wheezing Lipid Panel Today R06.2 - Wheezing Referrals Medical Weight Management Referral E66.01 - Morbid (severe) obesity due to e xcess calories, Z68.43 - Body mass index [BMI] 50.0-59.9, adult Pulmonology Referral R06.2 - Wheezing Medications: New budesonide-formoterol 80-4.5 mcg/actuation (Symbicort) 1 inh inhalation BID 10.2 grams 2RF
--- OUTSIDE RECORDS SUMMARY | 2024-08-13 11:32 | XMS_ITS | Clinical Summary ---
Author Organization [facility] ity Address [address] [place] [address] Care Team Providers Care Powerhouse Operator Name Role Phone CedrickTere graves DO Primary [...] age to complete this topic Care Teams Powerhouse Operator Relationship Specialty Start Date End Date Tere Vale DO [address] [id number] PCP - General 07/08/13
== END 2024-08-13 11:17 | disposition home or self-care (01) ==
LOC: HO.HMCC 10:07
PROVIDERS: PCP Nurse Practitioner Family; Visit Provider Nurse Practitioner Family
DX: R06.2 Wheezing (principal); E66.01 Morbid (severe) obesity due to excess calories; Z68.43 Body mass index [BMI] 50.0-59.9, adult

== ENCOUNTER → 2024-08-13 10:06 | Outpatient (BNVA) | payer OTHER, SELFPAY | PROVIDERS: PCP Nurse Practitioner Family; Visit Provider Nurse Practitioner Family | DX: R06.2 Wheezing (principal); E66.01 Morbid (severe) obesity due to excess calories; Z68.43 Body mass index [BMI] 50.0-59.9, adult; Z71.3 Dietary counseling and surveillance | CPT/HCPCS: 96127; 99212 ==

== ENCOUNTER 2024-08-26 08:03 | Outpatient (AMB) | payer OTHER, SELFPAY ==
--- NOTE | 2024-08-26 08:12 | MHC.OFFVIS ---
Vital Signs 08/26/24 08:13 Height 5 ft Weight 283 lb 1.176 oz BMI 55.3 BP 110/58 L Blood Pressure Location Rt brachial Position Sitting Pulse 78 Pulse Source Pulse Oximeter Pulse Oximetry (%) 96 Oxygen Delivery Method Room Air Intake Visit Reasons: 2 mo f/u Intake Note: ESTABLISHED PATIENT for mgmt GERD + Abn Labs. Outstanding orders, called and LVM 08/22 Chief Complaint; Pt denies any GI sx or concerns at this time. Pt did not receive the original voicemail unfortunately and has not had time to get lab work done due to work and school. However, pt does plan to get lab work done on this week. Sx well controlled. Slunk Skin Curer Required: No Accompanied by: Self / Same As Patient Allergies No Known Allergies [No Known Allergies*] Allergy (Verified 09/05/24 14:35) HPI HPI 2 mo f/u: Details: LAST VISIT: 06/24/2024 Elevated liver enzymes Morbid obesity with BMI of 50.0-59.9, adult GERD (gastroesophageal reflux disease) Epigastric pain Constipation Plan Will order ultrasound to re-evaluate the liver, liver enzymes as well. Upper GI series with barium swallow to evaluate for reflux, hernia. Check vitamin-D B12 and folate. Thyroid study. Patient will start taking pantoprazole and hold famotidine. Avoid dietary triggers and late night snacking. Staying upright for minimum 3 hours after meals discussed with patient. H pylori testing in the office today. Will treat empirically if positive. Patient will start taking Dulcolax daily. Increase fluid intake and activity to promote better bowel motility. Encouraged patient to try to lose weight. Low fat, low salt, low carb and high-protein diet recommended. Patient will return in 2 months, sooner on as needed basis. She is agreeable to this plan and verbalizes understanding of instructions. She was given the opportunity to ask questions all questions answered ? Thank you for allowing me to participate in her care Orders Orders US abdomen limited Today R79.89 H Pylori Breath Test Today K21.9 Liver Panel Today R74.01 FL upper GI w Ba Swallow Today K21.9 Vitamin D 25-OH (D2 and D3) Today E55.9 Vitamin B12 and Folate Today R19.7 TSH reflex Free T4 Today K59.00 Medications New bisacodyl (Dulcolax (bisacodyl)) 10 mg (2 x 5 mg) PO BEDTIME 180 tabs 4RF pantoprazole take one tablet half an hour before breakfast 40 mg PO DAILY 30 tabs 2RF K21.9 TODAY'S VISIT: Patient is here today for follow-up. Patient had upper GI series and abdominal ultrasound. Normal abdominal ultrasound except increase hepatic echogenicity. Upper GI series shows disorganized peristalses. Patient reports that she started taking Dulcolax in the morning and this helps her to go to the bathroom. Patient reports no abdominal pain or discomfort. Patient started changing her diet, introducing more vegetables. [facility] Medical History IUD (intrauterine device) in place Fatty liver GERD (gastroesophageal reflux disease) Arcuate uterus PCOS (polycystic ovarian syndrome) Morbid obesity with BMI of 50.0-59.9, adult History of pancreatitis Iron deficiency anemia due to chronic blood loss Hirsutism Menorrhagia with irregular cycle Surgical History S/P cholecystectomy History of tonsillectomy Family History Father Diabetes Hypertension Mother Diabetes Hypertension Thyroid cancer Maternal Grandmother Breast cancer Social History Household Members: Spouse and Children Housing: House Alcohol intake: current Alcohol intake frequency: holidays/special occasions only Alcohol type: beer and hard liquor Patient Tobacco Use Status: Never used Tobacco e-Cigarette/Vaping Use: Never Used Second Hand Smoke Exposure: Yes service: No Current occupational status: employed Current occupation: [employer] Current occupational exposures/hazards: No Cognitive needs: No Hearing needs: No Vision needs: No Female Reproductive History Menstrual Age of Menarche: 11 Review of Systems Const Denies weight gain and Denies weight loss ENT Reports no additional complaints, Denies dysphagia and Denies odynophagia Card Reports no additional complaints Resp Reports no additional complaints GI Denies abdominal pain, Denies belching, Denies melena, Denies bloating, Denies change in bowel habits, Denies dysphagia, Denies excessive flatus, Denies dyspepsia, Denies heartburn, Denies diarrhea, Denies loose stools, Denies nausea, Denies odynophagia and Denies vomiting Musc Reports no additional complaints Neuro Reports no additional complaints Psych Reports no additional complaints Endo Reports no additional complaints Physical Exam Vital Signs: Last Vital Signs Pulse 78 08/26/24 08:13 BP 110/58 L 08/26/24 08:13 Pulse Ox 96 08/26/24 08:13 Oxygen Delivery Method Room Air 08/26/24 08:13 BMI result Body Mass Index 55.3 Const General: healthy appearing and no acute distress Nutritional Appearance: obese Orientation/consciousness: patient oriented x3 Resp Effort & Inspection: normal respiratory effort, able to speak in complete sentences, no tracheal deviation and symmetric chest movement Auscultation: clear to auscultation bilaterally Cardio Rate: regular rate GI Inspection: Yes normal to inspection, No distended and Yes obesity Palpation (GI): Soft to palpation, not firm, nontender and No hepatosplenomegaly present Auscultation: normal bowel sounds General: Yes no CVA tenderness Back/Spine/Pelvis Back: no CVA tenderness Skin General skin exam: elasticity normal, turgor normal and dry skin Neuro General: patient oriented x3 Psych Appearance: grossly normal Mental Status: mental status grossly normal Results Reviewed Results Reviewed: UPPER GI SERIES 07/08/2024 IMPRESSION: 1. Mildly disorganized esophageal peristalsis. 2. Very small type I hiatal hernia. 3. Status post cholecystectomy. ABDOMINAL ULTRASOUND 07/12/2024 Findings: The visualized pancreas is normal. The aorta and inferior vena cava are normal caliber. The appearance of the liver suggests fatty infiltration without focal lesion. There is no intrahepatic bile duct dilatation. The common duct is 4.1 mm in diameter. There are no abnormal findings in the gallbladder fossa. There is no sonographic Louis sign. The main portal vein is antegrade. The right kidney is 10.3 cm in length. No ascites. IMPRESSION: Hepatic steatosis. Assessment & Plan Assessment & Plan (1) Elevated liver enzymes: Code(s): R74.8 - Abnormal levels of other serum enzymes Category: Medical (2) Morbid obesity with BMI of 50.0-59.9, adult: Code(s): E66.01 - Morbid (severe) obesity due to excess calories; Z68.43 - Body mass index [BMI] 50.0-59.9, adult Category: Medical (3) GERD (gastroesophageal reflux disease): Code(s): K21.9 - Gastro-esophageal reflux disease without esophagitis Category: Medical Qualifiers: Esophagitis presence: esophagitis presence not specified Qualified Code(s): K21.9 - Gastro-esophageal reflux disease without esophagitis (4) Epigastric pain: Code(s): R10.13 - Epigastric pain Category: Medical (5) Constipation: Code(s): K59.00 - Constipation, unspecified Qualifiers: Constipation type: slow transit constipation Qualified Code(s): K59.01 - Slow transit constipation Plan Continue Dulcolax daily. Increase fluid intake and activity to promote better bowel motility. Avoid dietary triggers and late night snacking. Staying upright for minimum 3 hours after meals discussed with patient. Continue famotidine at bedtime as needed. Discussed with patient the importance of diet. Low-salt, low-fat low carb and high-protein diet discussed. Stressed importance of losing weight and exercise. Patient was encouraged to get her blood work done this week. Patient will follow-up in 6 months, sooner on as needed basis. Patient is agreeable to this plan and verbalizes understanding of instructions. She was given the opportunity to ask questions and all questions answered. Thank you for allowing me to participate in her care Coding Level of Care Code Est Pt Level 4 (45559) Complex EM visit Add On G2211 Diagnoses Elevated liver enzymes R74.8 Morbid obesity with BMI of 50.0-59.9, adult E66.01; Z68.43 Gastroesophageal reflux disease, unspecified whether esophagitis present K21.9 Esophagitis presence: esophagitis presence not specified Epigastric pain R10.13 Slow transit constipation K59.01 Constipation type: slow transit constipation Time Spent (min) 35 Comment 20 minutes spent with patient and additional 15 minutes spent reviewing her records
[2024-08-26 08:13] VITALS: BP 110/58; PULSE 78; O2SAT 96; BMI 55.3
== END 2024-08-26 08:55 | disposition home or self-care (01) ==
LOC: HO.HGI 08:04
PROVIDERS: PCP Nurse Practitioner Family; Visit Provider Nurse Practitioner Family
DX: R74.8 Abnormal levels of other serum enzymes (principal); E66.01 Morbid (severe) obesity due to excess calories; Z68.43 Body mass index [BMI] 50.0-59.9, adult; K21.9 Gastro-esophageal reflux disease without esophagitis; R10.13 Epigastric pain; K59.01 Slow transit constipation
CPT/HCPCS: 99214; G2211

== ENCOUNTER → 2024-08-26 08:03 | Outpatient (BNVA) | payer OTHER, SELFPAY | PROVIDERS: PCP Nurse Practitioner Family; Visit Provider Nurse Practitioner Family | DX: K21.9 Gastro-esophageal reflux disease without esophagitis (principal); K59.01 Slow transit constipation; R74.8 Abnormal levels of other serum enzymes; R10.13 Epigastric pain; E66.01 Morbid (severe) obesity due to excess calories; Z68.43 Body mass index [BMI] 50.0-59.9, adult | CPT/HCPCS: 99212 ==

== ENCOUNTER 2024-08-28 07:56 | Outpatient (REF) | payer OTHER, SELFPAY ==
[2024-08-28 09:56] LABS: MANUAL DIFF FLAG NO
[2024-08-28 10:03] LABS: Basophils Absolute Auto 0.1 X10*3/uL (0.0-0.2); Basophils Percent Auto 0.6 % (0-2); Eosinophils Absolute Auto 0.3 X10*3/uL (0.0-0.4); Eosinophils Percent Auto 2.5 % (0-4); Hematocrit 42.7 % (37.0-47.0); Hemoglobin 13.6 g/dl (12.0-16.0); Imm Gran Abs Auto 0.08 X10*3/uL (0.00-0.03); Imm Gran Pct Auto 0.8 % (0.0-0.4); Lymphocytes Absolute Auto 2.5 X10*3/uL (1.2-4.9); Lymphocytes Percent Auto 25.6 % (20-40); Mean Corpuscular HGB Conc 31.9 g/dl (31.0-35.0); Mean Corpuscular Volume 84.7 fL (80.0-98.0); Mean Platelet Volume 9.5 fL (9.4-12.3); Monocytes Absolute Auto 0.8 X10*3/uL (0.1-1.2); Monocytes Percent Auto 8.1 % (2-11); Neutrophils Absolute Auto 6.2 x10*3/uL (2.0-8.3); Neutrophils Percent Auto 62.4 % (45-73); Platelet Count 359 X10*3/uL (160-400); Red Blood Count 5.04 X10*6/uL (4.20-5.50); White Blood Count 9.9 X10*3/uL (4.8-10.8)
[2024-08-28 10:26] LABS: Alanine Aminotransferase 33 U/L (0-31); Albumin Level 4.1 g/dL (3.5-5.0); Alkaline Phosphatase 76 U/L (39-117); Anion Gap 12 (12-20); Aspartate Amino Transferase 24 U/L (5-31); Bilirubin Total 0.5 mg/dL (0.0-1.0); Blood Urea Nitrogen 23 mg/dL (9-16); Calcium 9.1 mg/dL (8.4-10.2); Carbon Dioxide 25 mmol/L (22-29); Chloride 105 mmol/L (96-108); Cholesterol 144 mg/dL (<200); Estimated Glomerular Filt Rate > 60; Glucose Fasting 102 mg/dL (60-99); HDL Cholesterol 42 mg/dL (>40); LDL Cholesterol Calculated 90 mg/dL (<100); Sodium 138 mmol/L (135-145); Total Protein 7.5 g/dL (6.5-8.0); Triglycerides 64 mg/dL (<150)
[2024-08-28 10:26] LABS: Appearance Urine Clear; Color Urine Yellow; Glucose Urine UA Negative (Negative); Leukocyte Esterase Urine Negative (Negative); Nitrite Urine Negative (Negative); Urine Blood Negative (Negative); Urine Ketones Negative (Negative); Urine Protein Negative (Neg-Trace)
[2024-08-28 10:49] LABS: TSH reflex Free T4 2.16 uIU/mL (0.32-4.0)
[2024-09-05 09:34] LABS: Class Alternaria alternata 0; Class Aspergillus fumigatus 0; Class Bermuda Grass 0; Class Birch 0; Class Cat Dander 0; Class Cladosporium herbarum 0; Class Cockroach 1; Class Common Ragweed 0; Class Cottonwood 0; Class Derm. pterony 2; Class Dermatophagoides farinae 3; Class Dog Dander 0; Class Elm 0; Class Maple Box Elder 0; Class Mountain Cedar 0; Class Mouse Urine Protein 0; Class Mugwort 0; Class Oak 0; Class Penicillium crysogenum 0; Class Rough Pigweed 0; Class Sheep Sorrel 0; Class Sycamore 0; Class Timothy Grass 0; Class Walnut Tree 0; Class White Ash 0; Class White Mulberry 0; D001 IgE D pteronyssinus 2.83 kU/L; D002 - IgE D farinae 3.56 kU/L; E001 - IgE Cat Dander <0.10 kU/L; E005 - IgE Dog Dander <0.10 kU/L; E072-IgE Mouse Urine <0.10 kU/L; G002 IgE Bermuda Grass <0.10 kU/L; G006 - IgE Timothy Grass <0.10 kU/L; I006-IgE Cockroach, German 0.62 kU/L; Immunoglobulin E 186 kU/L (<OR=114); M001 IgE Penicillium chrysogen <0.10 kU/L; M002 - IgE Cladosporium herbar <0.10 kU/L; M003 - IgE Aspergillus fumigat <0.10 kU/L; M006 - IgE Alternaria alternat <0.10 kU/L; T001 IgE Maple/Box Elder <0.10 kU/L; T003 IgE Common Silver Birch <0.10 kU/L; T006 - IgE Cedar, Mountain <0.10 kU/L; T007 - IgE Oak, White <0.10 kU/L; T008 IgE Elm, American <0.10 kU/L; T010 - IgE Walnut <0.10 kU/L; T011 - IgE Maple Leaf Sycamore <0.10 kU/L; T014 - IgE Cottonwood <0.10 kU/L; T015 - IgE Ash, White <0.10 kU/L; T070 - IgE White Mulberry <0.10 kU/L; W001 - IgE Ragweed, Short <0.10 kU/L; W006 - IgE Mugwort <0.10 kU/L; W014 IgE Pigweed, Common <0.10 kU/L; W018 IgE Sheep Sorrel <0.10 kU/L
== END 2024-08-28 07:57 | disposition home or self-care (01) ==
LOC: HO.HMGCLDS 07:56
PROVIDERS: PCP Nurse Practitioner Family; Visit Provider Nurse Practitioner Family
DX: R06.2 Wheezing (principal)
CPT/HCPCS: 36415; 80053; 80061; 81003; 82785; 84443; 85025; 86003

== ENCOUNTER 2024-09-05 14:27 | Outpatient (AMB) | payer OTHER, SELFPAY ==
--- NOTE | 2024-09-05 14:33 | MHC.OFFVIS ---
Vital Signs 09/05/24 14:34 Height 5 ft Weight 282 lb BMI 55.1 Pulse 82 Pulse Source Pulse Oximeter Pulse Oximetry (%) 98 Oxygen Delivery Method Room Air Intake Visit Reasons: Wheezing Rough Rice Tender Required: No Blanket Inspector: Blanket Inspector offered & declined Accompanied by: Self / Same As Patient Allergies No Known Allergies [No Known Allergies*] Allergy (Verified 09/05/24 14:35) Medication List - Last Reconciled 09/05/24 by Shital Obregon LPN albuterol sulfate 90 mcg/actuation 2 puffs inhalation Q6H PRN bisacodyl (Dulcolax (bisacodyl)) 10 mg (2 x 5 mg) PO BEDTIME budesonide-formoterol 80-4.5 mcg/actuation (Symbicort) 1 inh inhalation BID calcium carbonate (Tums) 300 mg PO BID cetirizine (Zyrtec) 10 mg PO DAILY PRN cholecalciferol (vitamin D3) 50 mcg PO DAILY famotidine (Pepcid) 20 mg PO BEDTIME levonorgestrel (Kyleena) intrauterine HPI HPI Wheezing: Details: Andie is a pleasant 34 year old female, never smoker, with underlying GERD. She was referred by PCP for pulmonary evaluation. She reports long standing h/o bronchitis every Spring and Fall, told by prior PCP likely h/o asthma however never formally diagnosed. She was recently started on Symbicort 80 mcg for dyspnea on exertion and dry cough. Denies wheezing or chest tightness. She endorses seasonal allergies, dog at home. Recent RAST + DM and cockroach. IgE 186. She endorses difficulty with controlled GERD, under the care of GI, recently started Omeprazole with moderate effect. Does admit to having difficulties following a reflux diet. She denies any pertinent family history. Denies any occupational exposures. She denies personal smoking history however had significant second hand smoke exposure in that past. [facility] Medical History (Reviewed 08/26/24 @ 08:16 by Rodrigo Carroll [facility]) IUD (intrauterine device) in place Fatty liver GERD (gastroesophageal reflux disease) Arcuate uterus PCOS (polycystic ovarian syndrome) Morbid obesity with BMI of 50.0-59.9, adult History of pancreatitis Iron deficiency anemia due to chronic blood loss Hirsutism Menorrhagia with irregular cycle Surgical History S/P cholecystectomy History of tonsillectomy Family History Father Diabetes Hypertension Mother Diabetes Hypertension Thyroid cancer Maternal Grandmother Breast cancer Social History Household Members: Spouse and Children Housing: House Alcohol intake: current Alcohol intake frequency: holidays/special occasions only Alcohol type: beer and hard liquor Patient Tobacco Use Status: Never used Tobacco e-Cigarette/Vaping Use: Never Used Second Hand Smoke Exposure: Yes service: No Current occupational status: employed Current occupation: [employer] Current occupational exposures/hazards: No Cognitive needs: No Hearing needs: No Vision needs: No Female Reproductive History Menstrual Age of Menarche: 11 Review of Systems Const Denies chills, Denies excessive sweating, Denies fever(s), Denies headache(s) and Denies night sweats Eyes Denies dry eyes, Denies irritation and Denies itchy eyes ENT Reports Normal hearing present, Denies headache(s), Denies nasal congestion, Denies nasal discharge, Denies post nasal drip and Denies sore throat Card Denies chest pain, Denies chest pain at rest, Denies chest pain with activity, Denies claudication, Denies leg edema, Denies orthopnea and Denies paroxysmal nocturnal dyspnea Resp Denies chest congestion, Denies excessive phlegm production, Denies pain on inspiration, Denies pain with cough, Denies stridor and Denies wheezing Musc Denies myalgias Neuro Reports Normal hearing present and Denies headache(s) Endo Denies excessive sweating Zay/Lymph Denies lymphadenopathy Aller/Immun Denies itchy eyes, Denies seasonal rhinorrhea and Denies wheezing Physical Exam Vital Signs: Last Vital Signs Pulse 82 09/05/24 14:34 Pulse Ox 98 09/05/24 14:34 Oxygen Delivery Method Room Air 09/05/24 14:34 BMI result Body Mass Index 55.1 Const General: cooperative, healthy appearing, comfortable, no acute distress, well developed and alert Nutritional Appearance: obese Orientation/consciousness: patient oriented x3 Limitations: no limitations HEENT Head: Yes normal to inspection, Yes normocephalic and Yes atraumatic Ears: hearing grossly normal bilaterally and external ears normal Eyes General: appearance normal, both eyes and all related structures Eyelids: Yes eyelids normal Sclerae: sclerae normal EOM: EOMs intact bilaterally Neck Neck: Yes normal visual inspection and Yes no lymphadenopathy Lymphatic: no lymphadenopathy noted Chest Chest palpation & inspection: normal inspection of the chest Resp Effort & Inspection: normal respiratory effort, able to speak in complete sentences, no audible wheezes, no cough, no stridor, not tachypneic, no tripod positioning and no use of accessory muscles Auscultation: diminished lung sounds Cardio Jugular venous distension: no JVD Rate: regular rate Rhythm: regular rhythm Skin Other: warm, dry General skin exam: no rashes or lesions noted Neuro General: patient oriented x3 Cranial nerves: Yes Normal hearing present Cognition (Neuro): normal cognition Gait exam (Neuro): Normal gait present Extrem General: Yes normal to inspection, Yes capillary refill normal, Yes no clubbing, cyanosis or edema and Yes no pedal edema Psych Appearance: grossly normal and well kempt Speech and movement: Normal speech and movement present and Clear speech present Affect: normal affect Attitude: cooperative Thought process: Normal thought process present Thought content: Normal thought content present Insight: Good insight present (Psych) Judgement: Good judgement present (Psych) Assessment & Plan Assessment & Plan (1) Asthma: Code(s): J45.909 - Unspecified asthma, uncomplicated Category: Medical (2) Environmental allergies: Code(s): Z91.09 - Other allergy status, other than to drugs and biological substances Category: Medical Plan Andie's symptoms are likely from underlying asthma however may have reflux component contributing to cough. Discussed importance of adhering to reflux diet. Will send for PFT to assess severity of obstructive defect. Recommended she increase Symbicort 80mcg to 2 inhalations BID. Prior CXR unremarkable. Reviewed RAST which revealed environmental allergens. Discussed ways to minimize exposure. All questions were answered and patient is in agreement of plan. Will follow up in 6-8 weeks or sooner if needed. Orders: Orders PFT pulmonary function test Today J45.909 - Unspecified asthma, uncomplicated Coding Level of Care Code New Pt Level 3 (14855) Diagnoses Asthma J45.909 Environmental allergies Z91.09
[2024-09-05 14:34] VITALS: PULSE 82; O2SAT 98; BMI 55.1
--- OUTSIDE RECORDS SUMMARY | 2024-09-05 16:01 | XMS_ITS | Clinical Summary ---
Author Organization [facility] ity Address [address] [place] [address] Care Team Providers Care Fleet Sales Associate Name Role Phone CedrickTere graves DO Primary [...] age to complete this topic Care Teams Fleet Sales Associate Relationship Specialty Start Date End Date Tere Vale DO [address] [id number] PCP - General 07/08/13
== END 2024-09-05 15:01 | disposition home or self-care (01) ==
LOC: HO.HPSW 14:28
PROVIDERS: PCP Nurse Practitioner Family; Referring Provider Nurse Practitioner Family; Visit Provider Nurse Practitioner Family
DX: J45.909 Unspecified asthma, uncomplicated (principal); Z91.09 Other allergy status, other than to drugs and biological substances
CPT/HCPCS: 99203

== ENCOUNTER → 2024-09-05 14:27 | Outpatient (BNVA) | payer OTHER, SELFPAY | PROVIDERS: PCP Nurse Practitioner Family; Referring Provider Nurse Practitioner Family; Visit Provider Nurse Practitioner Family | DX: J45.909 Unspecified asthma, uncomplicated (principal); Z91.09 Other allergy status, other than to drugs and biological substances | CPT/HCPCS: 99202 ==

== ENCOUNTER 2024-10-23 14:52 | Outpatient (REF) | payer OTHER, SELFPAY ==
--- OUTSIDE RECORDS SUMMARY | 2024-10-23 14:57 | XMS_ITS | Clinical Summary ---
Author Organization [facility] ity Address [address] [place] [address] Care Team Providers Care Panel Machine Operator Name Role Phone CedrickTere graves Primary Care Pro vider Surgical History Surgery [...] Vaccine (2023-2 5 season) 2024 Influenza Vaccine (Season Ended) 2025 HIB Vaccines Aged Out No longer eligi [...] age to complete this topic Meningococcal B Vaccine Aged Out No l onger eligible based on patient's age to complete [...] age to complete this topic Care Teams Panel Machine Operator Relationship Specialty Start Date End Date Tere Vale DO [address] [phone] PCP - General 07/08/13
--- NOTE | 2024-10-23 14:59 | PFT_ITS ---
Flows: FEV1: 85 % of predicted at 2.35 L FVC: 82 % of predicted at 2.68 L FEV1/FVC: 88 % Bronchodilator response: Absent Volumes: Total lung capacity: 74 % of predicted at 3.34 L Residual volume: 70 % of predicted at 0.74 L Slow vital capacity: 75 % of predicted at 2.60 L Expiratory reserve volume: 3 % of predicted at 0.03 L Diffusion capacity: Normal Impression: Mild restrictive ventilatory defect with no bronchodilator response. Decreased expiratory reserve volume suggests extrathoracic restriction likely secondary to abdominal obesity. MTDD
[2024-10-23 15:41] VITALS: PULSE 88; O2SAT 97
== END 2024-10-23 14:53 | disposition home or self-care (01) ==
LOC: HO.RESP 14:52
PROVIDERS: PCP Nurse Practitioner Family; Visit Provider Nurse Practitioner Family
DX: J45.909 Unspecified asthma, uncomplicated (principal)
CPT/HCPCS: 94010; 94640; 94727; 94729

== ENCOUNTER → 2024-10-23 14:59 | Outpatient (BNV) | payer OTHER, SELFPAY | PROVIDERS: PCP Nurse Practitioner Family; Visit Provider Internal Medicine Pulmonary Disease | DX: J45.909 Unspecified asthma, uncomplicated (principal) | CPT/HCPCS: 94060; 94727; 94729 ==

== ENCOUNTER 2024-10-29 14:49 | Outpatient (AMB) | payer OTHER, SELFPAY ==
--- NOTE | 2024-10-29 14:52 | A.OFFVIS_ITS ---
Vital Signs 10/29/24 14:54 Height 5 ft Weight 286 lb BMI 55.8 BP 104/70 Blood Pressure Location Rt radial Position Sitting Pulse 87 Pulse Source Pulse Oximeter Pulse Oximetry (%) 97 Oxygen Delivery Method Room Air Intake Visit Reasons: Wheezing Allergies No Known Allergies [No Known Allergies*] Allergy (Verified 10/29/24 14:55) HPI HPI Wheezing: Details: Andie is a pleasant 34 year old female, never smoker, with underlying asthma and GERD. She was started on Symbicort 80 mcg for dyspnea on exertion, dry cough and wheezing. Since initiating she reports moderate improvement in dyspnea and cough, however continues to use albuterol multiple times per week. Wheezing has resolved. She endorses seasonal allergies, dog at home. Recent RAST + DM and cockroach. IgE 186, using antihistamine PRN. Today she presents to review PFT results. [facility] Medical History IUD (intrauterine device) in place Fatty liver GERD (gastroesophageal reflux disease) Arcuate uterus PCOS (polycystic ovarian syndrome) Morbid obesity with BMI of 50.0-59.9, adult History of pancreatitis Iron deficiency anemia due to chronic blood loss Hirsutism Menorrhagia with irregular cycle Surgical History S/P cholecystectomy History of tonsillectomy Family History Father Diabetes Hypertension Mother Diabetes Hypertension Thyroid cancer Maternal Grandmother Breast cancer Social History Household Members: Spouse and Children Housing: House Alcohol intake: current Alcohol intake frequency: holidays/special occasions only Alcohol type: beer and hard liquor Patient Tobacco Use Status: Never used Tobacco e-Cigarette/Vaping Use: Never Used Second Hand Smoke Exposure: Yes service: No Current occupational status: employed Current occupation: [employer] Current occupational exposures/hazards: No Cognitive needs: No Hearing needs: No Vision needs: No Female Reproductive History Menstrual Age of Menarche: 11 Review of Systems Const Denies chills, Denies excessive sweating, Denies fever(s), Denies headache(s) and Denies night sweats Eyes Denies dry eyes, Denies irritation and Denies itchy eyes ENT Reports Normal hearing present, Denies headache(s), Denies post nasal drip and Denies sore throat Card Denies chest pain, Denies chest pain at rest, Denies chest pain with activity, Denies claudication, Denies leg edema, Denies orthopnea and Denies paroxysmal nocturnal dyspnea Resp Denies chest congestion, Denies excessive phlegm production, Denies pain on inspiration, Denies pain with cough, Denies stridor and Denies wheezing Musc Denies myalgias Neuro Reports Normal hearing present and Denies headache(s) Endo Denies excessive sweating Zay/Lymph Denies lymphadenopathy Aller/Immun Denies itchy eyes, Denies seasonal rhinorrhea and Denies wheezing Physical Exam Vital Signs: Last Vital Signs Pulse 87 10/29/24 14:54 BP 104/70 10/29/24 14:54 Pulse Ox 97 10/29/24 14:54 Oxygen Delivery Method Room Air 10/29/24 14:54 BMI result Body Mass Index 55.8 Const General: cooperative, healthy appearing, comfortable, no acute distress, well developed and alert Nutritional Appearance: obese Orientation/consciousness: patient oriented x3 Limitations: no limitations HEENT Head: Yes normal to inspection, Yes normocephalic and Yes atraumatic Ears: hearing grossly normal bilaterally and external ears normal Eyes General: appearance normal, both eyes and all related structures Eyelids: Yes eyelids normal Sclerae: sclerae normal EOM: EOMs intact bilaterally Neck Neck: Yes normal visual inspection and Yes no lymphadenopathy Lymphatic: no lymphadenopathy noted Chest Chest palpation & inspection: normal inspection of the chest Resp Effort & Inspection: normal respiratory effort, able to speak in complete sentences, no audible wheezes, no cough, no stridor, not tachypneic, no tripod positioning and no use of accessory muscles Auscultation: diminished lung sounds Cardio Jugular venous distension: no JVD Rate: regular rate Rhythm: regular rhythm Skin Other: warm, dry General skin exam: no rashes or lesions noted Neuro General: patient oriented x3 Cranial nerves: Yes Normal hearing present Cognition (Neuro): normal cognition Gait exam (Neuro): Normal gait present Extrem General: Yes normal to inspection, Yes capillary refill normal, Yes no clubbing, cyanosis or edema and Yes no pedal edema Psych Appearance: grossly normal and well kempt Speech and movement: Normal speech and movement present and Clear speech present Affect: normal affect Attitude: cooperative Thought process: Normal thought process present Thought content: Normal thought content present Insight: Good insight present (Psych) Judgement: Good judgement present (Psych) Assessment & Plan Assessment & Plan (1) Asthma: Code(s): J45.909 - Unspecified asthma, uncomplicated Category: Medical (2) Environmental allergies: Code(s): Z91.09 - Other allergy status, other than to drugs and biological substances Category: Medical Plan Reviewed PFT which revealed mild restrictive ventilatory defect with no bronchodilator response. Decreased expiratory reserve volume suggests extrathoracic restriction likely secondary to abdominal obesity. DLCO normal. Discussed importance of weight loss. She did report overall improvement using Symbicort 80 mcg however continues to use albuterol MDI frequently. Will increase to Symbicort 160 mcg encouraged use a daily antihistamine given allergic component. All questions were answered and patient is in agreement of plan. Will follow up in 8-10 weeks or sooner if needed. Medications: New budesonide-formoterol 160-4.5 mcg/actuation (Symbicort) 2 puffs inhalation Q12H 10.2 grams 6RF Coding Level of Care Code Est Pt Level 4 (45519) Diagnoses Asthma J45.909 Environmental allergies Z91.09
[2024-10-29 14:54] VITALS: BP 104/70; PULSE 87; O2SAT 97; BMI 55.8
--- OUTSIDE RECORDS SUMMARY | 2024-10-29 15:37 | XMS_ITS | Clinical Summary ---
Author Organization [facility] ity Address [address] [place] [address] Care Team Providers Care Dot Net Developer Name Role Phone CedrickTere graves Primary Care [...] age to complete this topic Care Teams Dot Net Developer Relationship Specialty Start Date End Date Tere Vale DO [address] [phone] PCP - General 07/08/13
== END 2024-10-29 15:32 | disposition home or self-care (01) ==
LOC: HO.HPSW 14:50
PROVIDERS: PCP Nurse Practitioner Family; Visit Provider Nurse Practitioner Family
DX: J45.909 Unspecified asthma, uncomplicated (principal); Z91.09 Other allergy status, other than to drugs and biological substances
CPT/HCPCS: 99214

== ENCOUNTER → 2024-10-29 14:49 | Outpatient (BNVA) | payer OTHER, SELFPAY | PROVIDERS: PCP Nurse Practitioner Family; Visit Provider Nurse Practitioner Family | DX: J45.909 Unspecified asthma, uncomplicated (principal); Z91.09 Other allergy status, other than to drugs and biological substances | CPT/HCPCS: 99212 ==

== ENCOUNTER 2024-12-31 14:00 | Outpatient (AMB) | payer OTHER, SELFPAY ==
--- NOTE | 2024-12-31 14:02 | MHC.OFFVIS ---
Vital Signs 12/31/24 14:03 Height 5 ft Weight 289 lb 4 oz BMI 56.5 BP 120/88 Blood Pressure Location Rt radial Position Sitting Pulse 80 Pulse Source Pulse Oximeter Pulse Oximetry (%) 98 Oxygen Delivery Method Room Air Intake Visit Reasons: Wheezing Allergies No Known Allergies (No Known Allergies*) Allergy (Verified 12/31/24 14:05) HPI HPI Wheezing: Details: Andie is a pleasant 34 year old female, never smoker, with underlying asthma and GERD. She was started on Symbicort 80 mcg for dyspnea on exertion, dry cough and wheezing. At the last visit, patient was switched from Symbicort 80 mcg to 160 mcg in addition to daily antihistamine and reports excellent control of respiratory symptoms. Currently she denies any respiratory symptoms and reports minimal use of albuterol, previously using frequently. She has also increased her activity now using the treadmill for 30 minutes per day without any respiratory symptoms and is working towards weight loss. She denies any visits to urgent care or hospitalizations related to respiratory distress since last visit. [facility] Medical History IUD (intrauterine device) in place Fatty liver GERD (gastroesophageal reflux disease) Arcuate uterus PCOS (polycystic ovarian syndrome) Morbid obesity with BMI of 50.0-59.9, adult History of pancreatitis Iron deficiency anemia due to chronic blood loss Hirsutism Menorrhagia with irregular cycle Surgical History S/P cholecystectomy History of tonsillectomy Family History Father Diabetes Hypertension Mother Diabetes Hypertension Thyroid cancer Maternal Grandmother Breast cancer Social History Household Members: Spouse and Children Housing: House Alcohol intake: current Alcohol intake frequency: holidays/special occasions only Alcohol type: beer and hard liquor Patient Tobacco Use Status: Never used Tobacco e-Cigarette/Vaping Use: Never Used Second Hand Smoke Exposure: Yes service: No Current occupational status: employed Current occupation: [employer] service Current occupational exposures/hazards: No Cognitive needs: No Hearing needs: No Vision needs: No Female Reproductive History Menstrual Age of Menarche: 11 Review of Systems Const Denies chills, Denies excessive sweating, Denies fever(s), Denies headache(s) and Denies night sweats Eyes Denies dry eyes, Denies irritation and Denies itchy eyes ENT Reports Normal hearing present, Denies headache(s), Denies nasal congestion, Denies nasal discharge, Denies post nasal drip and Denies sore throat Card Denies chest pain, Denies chest pain at rest, Denies chest pain with activity, Denies claudication, Denies leg edema, Denies dyspnea, Denies dyspnea on exertion, Denies orthopnea and Denies paroxysmal nocturnal dyspnea Resp Denies chest congestion, Denies cough, Denies excessive phlegm production, Denies pain on inspiration, Denies pain with cough, Denies dyspnea, Denies dyspnea on exertion, Denies stridor and Denies wheezing Musc Denies myalgias Neuro Reports Normal hearing present and Denies headache(s) Endo Denies excessive sweating Zay/Lymph Denies lymphadenopathy Aller/Immun Denies itchy eyes, Denies seasonal rhinorrhea and Denies wheezing Physical Exam Vital Signs: Last Vital Signs Pulse 80 12/31/24 14:03 BP 120/88 12/31/24 14:03 Pulse Ox 98 12/31/24 14:03 Oxygen Delivery Method Room Air 12/31/24 14:03 BMI result Body Mass Index 56.5 Const General: cooperative, healthy appearing, comfortable, no acute distress, well developed and alert Nutritional Appearance: obese Orientation/consciousness: patient oriented x3 Limitations: no limitations HEENT Head: Yes normal to inspection, Yes normocephalic and Yes atraumatic Ears: hearing grossly normal bilaterally and external ears normal Eyes General: appearance normal, both eyes and all related structures Eyelids: Yes eyelids normal Sclerae: sclerae normal EOM: EOMs intact bilaterally Neck Neck: Yes normal visual inspection and Yes no lymphadenopathy Lymphatic: no lymphadenopathy noted Chest Chest palpation & inspection: normal inspection of the chest Resp Effort & Inspection: normal respiratory effort, able to speak in complete sentences, no audible wheezes, no cough, no stridor, not tachypneic, no tripod positioning and no use of accessory muscles Auscultation: diminished lung sounds Cardio Jugular venous distension: no JVD Rate: regular rate Rhythm: regular rhythm Skin Other: warm, dry General skin exam: no rashes or lesions noted Neuro General: patient oriented x3 Cranial nerves: Yes Normal hearing present Cognition (Neuro): normal cognition Gait exam (Neuro): Normal gait present Extrem General: Yes normal to inspection, Yes capillary refill normal, Yes no clubbing, cyanosis or edema and Yes no pedal edema Psych Appearance: grossly normal and well kempt Speech and movement: Normal speech and movement present and Clear speech present Affect: normal affect Attitude: cooperative Thought process: Normal thought process present Thought content: Normal thought content present Insight: Good insight present (Psych) Judgement: Good judgement present (Psych) Assessment & Plan Assessment & Plan (1) Asthma: Code(s): J45.909 - Unspecified asthma, uncomplicated Category: Medical (2) Environmental allergies: Code(s): Z91.09 - Other allergy status, other than to drugs and biological substances Category: Medical Plan At this time Andie reports excellent control of respiratory symptoms on current regimen, advised to continue Symbicort 160 mcg and an antihistamine. She is aware to call the office if symptoms change. All questions were answered and patient is in agreement of plan. Will follow up in 3 months or sooner if needed. Coding Level of Care Code Est Pt Level 4 (25345) Diagnoses Asthma J45.909 Environmental allergies Z91.09
[2024-12-31 14:03] VITALS: BP 120/88; PULSE 80; O2SAT 98; BMI 56.5
== END 2024-12-31 14:23 | disposition home or self-care (01) ==
LOC: HO.HPSW 14:01
PROVIDERS: PCP Nurse Practitioner Family; Visit Provider Nurse Practitioner Family
DX: J45.909 Unspecified asthma, uncomplicated (principal); Z91.09 Other allergy status, other than to drugs and biological substances
CPT/HCPCS: 99214

== ENCOUNTER → 2024-12-31 14:00 | Outpatient (BNVA) | payer OTHER, SELFPAY | PROVIDERS: PCP Nurse Practitioner Family; Visit Provider Nurse Practitioner Family | DX: K21.9 Gastro-esophageal reflux disease without esophagitis (principal); J45.909 Unspecified asthma, uncomplicated; Z91.09 Other allergy status, other than to drugs and biological substances | CPT/HCPCS: 99212 ==

== ENCOUNTER 2025-02-24 08:12 | Outpatient (AMB) | payer OTHER, SELFPAY ==
--- NOTE | 2025-02-24 08:22 | MHC.OFFVIS ---
Vital Signs 02/24/25 08:29 Height 5 ft Weight 287 lb BMI 56.0 BP 118/60 Blood Pressure Location Rt brachial Position Sitting Pulse 82 Pulse Source Pulse Oximeter Pulse Oximetry (%) 97 Oxygen Delivery Method Room Air Intake Visit Reasons: 6 mos FUV. GERD mgmt. Intake Note: ESTABLISHED PATIENT for mgmt GERD + Abn Labs. Chief Complaint; Pt denies any new GI sx. Pt does report mild concern regarding the use of the bisacodyl. Pt states that she has reduced her intake of the medication to at most, every other day as she was having diarrhea now when she didn't previously. Instructor Of Education Required: No Accompanied by: Self / Same As Patient Allergies No Known Allergies (No Known Allergies*) Allergy (Verified 02/24/25 08:23) HPI HPI 6 mos FUV. GERD mgmt.: Details: LAST VISIT Elevated liver enzymes Morbid obesity with BMI of 50.0-59.9, adult GERD (gastroesophageal reflux disease) Epigastric pain Constipation Plan Continue Dulcolax daily. Increase fluid intake and activity to promote better bowel motility. Avoid dietary triggers and late night snacking. Staying upright for minimum 3 hours after meals discussed with patient. Continue famotidine at bedtime as needed. Discussed with patient the importance of diet. Low-salt, low-fat low carb and high-protein diet discussed. Stressed importance of losing weight and exercise. Patient was encouraged to get her blood work done this week. Patient will follow-up in 6 months, sooner on as needed basis. Patient is agreeable to this plan and verbalizes understanding of instructions. She was given the opportunity to ask questions and all questions answered. TODAY'S VISIT: Patient is here today for follow-up. Patient reports that she has been doing well. Takes famotidine and her symptoms of acid reflux are suppressed completely. Denies any nausea or vomiting. Denies any dyspepsia, dysphagia or odynophagia. Patient reports that she is moving her bowels better now. Patient had to stop taking Dulcolax daily. Takes 1-2 tablets as needed for bowel movements. Patient denies melena, hematochezia, unintentional weight loss or ribbon like stools. Patient denies any abdominal pain or discomfort. Reports to have good appetite. Denies any other GI symptoms. [facility] Medical History IUD (intrauterine device) in place Fatty liver GERD (gastroesophageal reflux disease) Arcuate uterus PCOS (polycystic ovarian syndrome) Morbid obesity with BMI of 50.0-59.9, adult History of pancreatitis Iron deficiency anemia due to chronic blood loss Hirsutism Menorrhagia with irregular cycle Surgical History S/P cholecystectomy History of tonsillectomy Family History Father Diabetes Hypertension Mother Diabetes Hypertension Thyroid cancer Maternal Grandmother Breast cancer Social History Household Members: Spouse and Children Housing: House Alcohol intake: current Alcohol intake frequency: holidays/special occasions only Alcohol type: beer and hard liquor Patient Tobacco Use Status: Never used Tobacco e-Cigarette/Vaping Use: Never Used Second Hand Smoke Exposure: Yes service: No Current occupational status: employed Current occupation: [employer] service Current occupational exposures/hazards: No Cognitive needs: No Hearing needs: No Vision needs: No Female Reproductive History Menstrual Age of Menarche: 11 Review of Systems Const Denies weight gain and Denies weight loss ENT Reports no additional complaints, Denies dysphagia and Denies odynophagia Card Reports no additional complaints Resp Reports no additional complaints GI Denies abdominal pain, Denies belching, Denies melena, Denies bloating, Denies change in bowel habits, Denies dysphagia, Denies excessive flatus, Denies dyspepsia, Denies heartburn, Denies diarrhea, Denies loose stools, Denies nausea, Denies odynophagia and Denies vomiting Musc Reports no additional complaints Neuro Reports no additional complaints Psych Reports no additional complaints Endo Reports no additional complaints Physical Exam Vital Signs: Last Vital Signs Pulse 82 02/24/25 08:29 BP 118/60 02/24/25 08:29 Pulse Ox 97 02/24/25 08:29 Oxygen Delivery Method Room Air 02/24/25 08:29 BMI result Body Mass Index 56.0 Const General: healthy appearing and no acute distress Nutritional Appearance: obese Orientation/consciousness: patient oriented x3 Resp Effort & Inspection: normal respiratory effort, able to speak in complete sentences, no tracheal deviation and symmetric chest movement Auscultation: clear to auscultation bilaterally Cardio Rate: regular rate GI Inspection: Yes normal to inspection, No distended and Yes obesity Palpation (GI): Soft to palpation, not firm, nontender and No hepatosplenomegaly present Auscultation: normal bowel sounds General: Yes no CVA tenderness Back/Spine/Pelvis Back: no CVA tenderness Skin General skin exam: elasticity normal, turgor normal and dry skin Neuro General: patient oriented x3 Psych Appearance: grossly normal Mental Status: mental status grossly normal Assessment & Plan Assessment & Plan (1) GERD (gastroesophageal reflux disease): Code(s): K21.9 - Gastro-esophageal reflux disease without esophagitis Category: Medical Qualifiers: Esophagitis presence: esophagitis presence not specified Qualified Code(s): K21.9 - Gastro-esophageal reflux disease without esophagitis (2) Elevated liver enzymes: Code(s): R74.8 - Abnormal levels of other serum enzymes Category: Medical (3) Epigastric pain: Code(s): R10.13 - Epigastric pain Category: Medical (4) Constipation: Code(s): K59.00 - Constipation, unspecified Qualifiers: Constipation type: slow transit constipation Qualified Code(s): K59.01 - Slow transit constipation (5) Postprandial abdominal bloating: Code(s): R14.0 - Abdominal distension (gaseous) Plan Patient will continue taking famotidine. Avoid dietary triggers and late night snacking. Staying upright for minimum 3 hours after meals discussed with patient. Patient will take Dulcolax as needed. Will check liver panel and liver fibrosis. Will send patient for ultrasound. History of transaminitis in the past and fatty liver. Discussed with patient low-fat, low carb, low-salt and high-protein diet. Weight loss recommended. Increase fluid intake and activity to promote better bowel motility. Follow-up in 6 months, sooner on as needed basis. She is agreeable to this plan and verbalizes understanding of instructions. She was given the opportunity to ask questions and all questions answered. Thank you for allowing me to participate in her care Orders: Orders Liver Panel Today R74.01 - Elevation of levels of liver transaminase levels Liver Fibrosis Pnl Today K76.0 - Fatty (change of) liver, not elsewhere classified US abdomen hugo w elastography Today K76.0 - Fatty (change of) liver, not elsewhere classified Coding Level of Care Code Est Pt Level 3 (45746) Diagnoses Gastroesophageal reflux disease, unspecified whether esophagitis present K21.9 Esophagitis presence: esophagitis presence not specified Elevated liver enzymes R74.8 Epigastric pain R10.13 Slow transit constipation K59.01 Constipation type: slow transit constipation Postprandial abdominal bloating R14.0 Time Spent (min) 25 Comment 15 minutes spent with patient and additional 10 minutes spent reviewing her records
[2025-02-24 08:29] VITALS: BP 118/60; PULSE 82; O2SAT 97; BMI 56.0
--- OUTSIDE RECORDS SUMMARY | 2025-02-24 09:05 | XMS_ITS | Clinical Summary ---
Author Organization [facility] ity Address [address] [place] [address] Care Team Providers Care Pillowcase Cleaner Name Role Phone CedrickTere graves Primary Care [...] Cervical Cancer Screening: P ap Smear 2012 Depression Screening 06/04/2024 COVID-19 Vaccine ( - 2023-2 5 season) 2025 Influenza Vaccine (#1) 2025 HIB Vaccines Aged Out No longer [...] 5 Years) and At-Risk Patients (6 to 49 Years) Aged Out No longer eligible b ased on patient's age to complete this topic RSV Immunization Patients Un zelalem 20 months Aged Out No longer eligible b ased on patient's age to complete this topic Varicella Vaccines Aged Out No longer eligible based on patient's age to complete this topic Care Teams Pillowcase Cleaner Relationship Specialty Start Date End Date Tere Vale DO [address] [phone] PCP - General 07/08/13
== END 2025-02-24 08:45 | disposition home or self-care (01) ==
LOC: HO.HGI 08:13
PROVIDERS: PCP Nurse Practitioner Family; Visit Provider Nurse Practitioner Family
DX: K21.9 Gastro-esophageal reflux disease without esophagitis (principal); R74.8 Abnormal levels of other serum enzymes; R10.13 Epigastric pain; K59.01 Slow transit constipation; R14.0 Abdominal distension (gaseous)
CPT/HCPCS: 99213

== ENCOUNTER → 2025-02-24 08:12 | Outpatient (BNVA) | payer OTHER, SELFPAY | PROVIDERS: PCP Nurse Practitioner Family; Visit Provider Nurse Practitioner Family | DX: K21.9 Gastro-esophageal reflux disease without esophagitis (principal); K59.01 Slow transit constipation; R74.8 Abnormal levels of other serum enzymes; R10.13 Epigastric pain; R14.0 Abdominal distension (gaseous) | CPT/HCPCS: 99212 ==

== ENCOUNTER 2025-04-01 15:40 | Outpatient (AMB) | payer OTHER, SELFPAY ==
[2025-04-01 15:41] VITALS: BP 120/78; PULSE 87; O2SAT 98; BMI 57.5
--- NOTE | 2025-04-01 15:41 | MHC.OFFVIS ---
Vital Signs 04/01/25 15:41 Height 5 ft Weight 294 lb 4 oz BMI 57.5 BP 120/78 Blood Pressure Location Rt radial Position Sitting Pulse 87 Pulse Source Pulse Oximeter Pulse Oximetry (%) 98 Oxygen Delivery Method Room Air Intake Visit Reasons: Wheezing Allergies No Known Allergies (No Known Allergies*) Allergy (Verified 04/01/25 15:45) HPI HPI Wheezing: Details: Andie is a pleasant 35 year old female, never smoker, with underlying asthma and GERD. She has been using Symbicort 160 mcg in addition to daily antihistamine with excellent control of respiratory symptoms, rarely requiring albuterol MDI. At this time, she denies any respiratory symptoms. She denies any visits to urgent care or hospitalizations related to respiratory distress since last visit. [facility] Medical History IUD (intrauterine device) in place Fatty liver GERD (gastroesophageal reflux disease) Arcuate uterus PCOS (polycystic ovarian syndrome) Morbid obesity with BMI of 50.0-59.9, adult History of pancreatitis Iron deficiency anemia due to chronic blood loss Hirsutism Menorrhagia with irregular cycle Surgical History S/P cholecystectomy History of tonsillectomy Family History Father Diabetes Hypertension Mother Diabetes Hypertension Thyroid cancer Maternal Grandmother Breast cancer Social History Household Members: Spouse and Children Housing: House Alcohol intake: current Alcohol intake frequency: holidays/special occasions only Alcohol type: beer and hard liquor Patient Tobacco Use Status: Never used Tobacco e-Cigarette/Vaping Use: Never Used Second Hand Smoke Exposure: Yes service: No Current occupational status: employed Current occupation: [employer] Current occupational exposures/hazards: No Cognitive needs: No Hearing needs: No Vision needs: No Female Reproductive History Menstrual Age of Menarche: 11 Review of Systems Const Denies chills, Denies excessive sweating, Denies fever(s), Denies headache(s) and Denies night sweats Eyes Denies dry eyes, Denies irritation and Denies itchy eyes ENT Reports Normal hearing present, Denies headache(s), Denies nasal congestion, Denies nasal discharge, Denies post nasal drip and Denies sore throat Card Denies chest pain, Denies chest pain at rest, Denies chest pain with activity, Denies claudication, Denies leg edema, Denies dyspnea, Denies dyspnea on exertion, Denies orthopnea and Denies paroxysmal nocturnal dyspnea Resp Denies chest congestion, Denies cough, Denies excessive phlegm production, Denies pain on inspiration, Denies pain with cough, Denies dyspnea, Denies dyspnea on exertion, Denies stridor and Denies wheezing Musc Denies myalgias Neuro Reports Normal hearing present and Denies headache(s) Endo Denies excessive sweating Zay/Lymph Denies lymphadenopathy Aller/Immun Denies itchy eyes, Denies seasonal rhinorrhea and Denies wheezing Physical Exam Vital Signs: Last Vital Signs Pulse 87 04/01/25 15:41 Pulse Ox 98 04/01/25 15:41 Oxygen Delivery Method Room Air 04/01/25 15:41 BMI result Body Mass Index 57.5 Const General: cooperative, healthy appearing, comfortable, no acute distress, well developed and alert Nutritional Appearance: obese Orientation/consciousness: patient oriented x3 Limitations: no limitations HEENT Head: Yes normal to inspection, Yes normocephalic and Yes atraumatic Ears: hearing grossly normal bilaterally and external ears normal Eyes General: appearance normal, both eyes and all related structures Eyelids: Yes eyelids normal Sclerae: sclerae normal EOM: EOMs intact bilaterally Neck Neck: Yes normal visual inspection and Yes no lymphadenopathy Lymphatic: no lymphadenopathy noted Chest Chest palpation & inspection: normal inspection of the chest Resp Effort & Inspection: normal respiratory effort, able to speak in complete sentences, no audible wheezes, no cough, no stridor, not tachypneic, no tripod positioning and no use of accessory muscles Auscultation: clear to auscultation bilaterally Cardio Jugular venous distension: no JVD Rate: regular rate Rhythm: regular rhythm Skin Other: warm, dry General skin exam: no rashes or lesions noted Neuro General: patient oriented x3 Cranial nerves: Yes Normal hearing present Cognition (Neuro): normal cognition Gait exam (Neuro): Normal gait present Extrem General: Yes normal to inspection, Yes capillary refill normal, Yes no clubbing, cyanosis or edema and Yes no pedal edema Psych Appearance: grossly normal and well kempt Speech and movement: Normal speech and movement present and Clear speech present Affect: normal affect Attitude: cooperative Thought process: Normal thought process present Thought content: Normal thought content present Insight: Good insight present (Psych) Judgement: Good judgement present (Psych) Assessment & Plan Assessment & Plan (1) Asthma: Code(s): J45.909 - Unspecified asthma, uncomplicated Category: Medical (2) Environmental allergies: Code(s): Z91.09 - Other allergy status, other than to drugs and biological substances Category: Medical Plan At this time Andie reports excellent control of respiratory symptoms on current regimen, advised to continue Symbicort 160 mcg, albuterol MDI PRN and an antihistamine. She is aware to call the office if symptoms change. All questions were answered and patient is in agreement of plan. Will follow up in 6 months or sooner if needed. Coding Level of Care Code Est Pt Level 3 (05490) Diagnoses Asthma J45.909 Environmental allergies Z91.09
--- OUTSIDE RECORDS SUMMARY | 2025-04-01 19:54 | XMS_ITS | Clinical Summary ---
Author Organization [facility] ity Address [address] [place] [address] Care Team Providers Care Financial Services Rep Name Role Phone Tere Vale Primary Care Pro vider Surgical History Surgery [...] Cervical Cancer Screening: P ap Smear 2012 HPV Vaccines (1 - 3-dose SCD M series) 2018 Depression Screening 06/04/2024 COVID-19 Vaccine (1 - 2023-2 5 season) 2025 Influenza Vaccine (#1) 2025 RSV Immunization Adult Patie nts (1 - 1-dose 75+ series) 2066 HIB Vaccines Aged Out No longer eligi [...] age to complete this topic Care Teams Financial Services Rep Relationship Specialty Start Date End Date Tere Vale DO [address] [phone] PCP - General 07/08/13
== END 2025-04-01 15:56 | disposition home or self-care (01) ==
LOC: HO.HPSW 15:41
PROVIDERS: PCP Nurse Practitioner Family; Visit Provider Nurse Practitioner Family
DX: J45.909 Unspecified asthma, uncomplicated (principal); Z91.09 Other allergy status, other than to drugs and biological substances
CPT/HCPCS: 99213

== ENCOUNTER → 2025-04-01 15:40 | Outpatient (BNVA) | payer OTHER, SELFPAY | PROVIDERS: PCP Nurse Practitioner Family; Visit Provider Nurse Practitioner Family | DX: J45.909 Unspecified asthma, uncomplicated (principal); Z91.09 Other allergy status, other than to drugs and biological substances | CPT/HCPCS: 99212 ==

== ENCOUNTER 2025-04-13 07:20 | Outpatient (REF) | payer OTHER, SELFPAY ==
--- OUTSIDE RECORDS SUMMARY | 2025-04-13 07:23 | XMS_ITS | Clinical Summary ---
Author Organization [facility] ity Address [address] [place] [address] Care Team Providers Care Car Record Clerk Name Role Phone Tere Vale Primary Care [...] age to complete this topic Care Teams Car Record Clerk Relationship Specialty Start Date End Date Tere Vale DO [address] [phone] PCP - General 07/08/13
[2025-04-13 11:18] LABS: Folate 16.1 ng/mL (> or = 4.0); Vitamin B12 483 pg/mL (200-900)
[2025-04-13 11:34] LABS: Alanine Aminotransferase 36 U/L (0-31); Albumin Level 4.5 g/dL (3.5-5.0); Alkaline Phosphatase 91 U/L (39-117); Aspartate Amino Transferase 26 U/L (5-31); Total Protein 7.7 g/dL (6.5-8.0)
[2025-04-19 13:23] LABS: Vitamin D 25-OH, D2 <4 ng/mL; Vitamin D 25-OH, D3 31 ng/mL; Vitamin D 25-OH, Total 31 ng/mL (30-100)
[2025-04-21 17:38] LABS: FIB-ALT 27 U/L (6-29); FIB-Alpha-2-Macroglobulin 135 mg/dL (106-279); FIB-Apolipoprotein A1 146 mg/dL (101-198); FIB-GGT 36 U/L (3-50); FIB-Haptoglobin 309 mg/dL (43-212); FIB-Total Bilirubin 0.4 mg/dL (0.2-1.2); Liver Fibrosis Score 0.03; Liver Fibrosis Stage F0; Nec Inflam Act Grade A0; Nec Inflam Act Score 0.09
== END 2025-04-13 07:21 | disposition home or self-care (01) ==
LOC: HO.HMGCLDS 07:20
PROVIDERS: PCP Nurse Practitioner Family; Visit Provider Nurse Practitioner Family
DX: R74.01 Elevation of levels of liver transaminase levels (principal); K76.0 Fatty (change of) liver, not elsewhere classified; E55.9 Vitamin D deficiency, unspecified; R19.7 Diarrhea, unspecified; K59.00 Constipation, unspecified
CPT/HCPCS: 36415; 80076; 81596; 82306; 82607; 82746; 84443

== ENCOUNTER 2025-05-07 09:26 | Outpatient (REF) | payer OTHER, SELFPAY ==
--- NOTE | ~2025-05-07 | US_ITS ---
EXAMINATION: US ABDOMEN LIMITED WITH LIVER ELASTOGRAPHY CLINICAL INFORMATION: K76.0 - Fatty (change of) liver, not elsewhere classified COMPARISON: 07/11/2024 abdomen ultrasound TECHNIQUE: Real-time imaging of the abdominal viscera. Noninvasive ultrasound liver fibrosis assessment is performed using Caroline ElastPQ point quantification shear wave elastography (pSWE) with a 5 MHz transducer. Multiple elastography samples are obtained. FINDINGS: PANCREAS: The visualized pancreatic head and body are normal in appearance. The remainder of the pancreas is obscured from visualization by the overlying bowel gas. LIVER: The liver has a coarse echotexture. Echogenicity is increased. The right lobe measures 18 cm in length. The left lobe measures 12 cm in length. The main portal vein is patent with a normal direction of flow and a continuous venous waveform. Shear wave elastography provides a median stiffness of 1.5 m/s (reference: normal median stiffness is 0.81 - 1.22 m/s). The IQR/median stiffness to assess sampling precision is 0.08 (reference: optimal IQR/median stiffness is under 0.3). GALLBLADDER: Surgically absent COMMON BILE DUCT: Normal in caliber measuring 4 mm in diameter. RIGHT KIDNEY: No hydronephrosis. No renal calculi or focal parenchymal lesions. The kidney measures 10 cm in maximum dimension. FREE FLUID: None seen. US/US abdomen hugo w elastography IMPRESSION: 1. Hepatic steatosis 2. Elastography: Liver elastography measurements are consistent with a minimal risk for clinically significant liver fibrosis (METAVIR Stage F0-F1). Electronically signed by: Dashawn Mcgee MD 05/07/2025 10:04 AM JAQUAN
--- OUTSIDE RECORDS SUMMARY | 2025-05-07 10:42 | XMS_ITS | Clinical Summary ---
Author Organization [facility] ity Address [address] [place] [address] Care Team Providers Care Clutch Rebuilder Name Role Phone CedrickTere graves Primary Care [...] Depression Screening 06/04/2024 COVID-19 Vaccine (1 - 2024-2 6 season) 2025 Influenza Vaccine (#1) 2025 RSV [...] age to complete this topic Care Teams Clutch Rebuilder Relationship Specialty Start Date End Date Tere Vale DO [address] [phone] PCP - General 07/08/13
== END 2025-05-07 09:27 | disposition home or self-care (01) ==
LOC: HO.US 09:26
PROVIDERS: PCP Nurse Practitioner Family; Visit Provider Nurse Practitioner Family
DX: K76.0 Fatty (change of) liver, not elsewhere classified (principal)
CPT/HCPCS: 76705; 76981

== ENCOUNTER → 2025-05-07 09:27 | Outpatient (BNV) | payer OTHER, SELFPAY | PROVIDERS: PCP Nurse Practitioner Family; Visit Provider Radiology Diagnostic Radiology | DX: K76.0 Fatty (change of) liver, not elsewhere classified (principal) | CPT/HCPCS: 76705 ==